=== PATIENT | female | born 1965 | race Caucasian/White ===

== ENCOUNTER → 2016-10-22 | Outpatient (CLI) | payer MEDICAID | LOC: RAD 15:25 | PROVIDERS: ATTEND Urology | DX: N13.30 Unspecified hydronephrosis (principal) | CPT/HCPCS: 76770 ==

== ENCOUNTER → 2017-02-12 | Outpatient (CLI) | payer MEDICAID | LOC: RAD 15:44 | PROVIDERS: ATTEND Internal Medicine | DX: Q07.00 Arnold-Chiari syndrome without spina bifida or hydrocephalus (principal) | CPT/HCPCS: 72141 ==

== ENCOUNTER → 2017-05-29 | Outpatient (CLI) | payer MEDICAID ==
--- NOTE | 2017-05-31 02:11 | RADIOLOGY REPORT (SQ) ---
EXAM DESCRIPTION: CT ABD/PELVIS NO ORAL OR IV COMPLETED DATE/TIME: 05/29/2017 12:19 pm REASON FOR STUDY: STONES (N20.0) N20.0 CALCULUS OF KIDNEY COMPARISON: Bilateral renal ultrasound 10/22/2016 CT abdomen pelvis 08/27/2016 TECHNIQUE: CT scan of the abdomen and pelvis performed without intravenous or oral contrast. Images reviewed with lung, soft tissue, and bone windows. Reconstructed coronal and sagittal MPR images revi ewed. All images stored on PACS. All CT scanners at this facility use dose modulation, iterative reconstruction, and/or weight based d osing when appropriate to reduce radiation dose to as low as reasonably achievable (ALARA). [facility]: Dose Right [facility]: CareDose [facility]: Dose Right [facility]: Teradose 4D [facility]: Right On Interactive RADIATION DOSE: Up-to-date CT equipment and radiation dose reduction techniques were employed. CTDIv ol: 9.2 mGy. DLP: 439 mGy-cm.mGy. LIMITATIONS: Streak artifact through the pelvis from bilateral hip hardware FINDINGS: LOWER CHEST: Small hiatal hernia. Lung bases are clear. NON-CONTRASTED LIVER, SPLEEN, ADRENALS: Evaluation limited by lack of IV contrast. No identified sign ificant masses. PANCREAS: No masses. No peripancreatic inflammatory changes. GALLBLADDER: Multiple calcified stones. No pericholecystic fluid. RIGHT KIDNEY AND URETER: No suspicious masses. Assessment limited by lack of IV contrast. There are multiple right-sided intrarenal nonobstructive stones less than a cm in size, the largest is in the upper pole kidney about 9 mm in diameter, 1,000 Hounsfield units in density. No hydronephrosis or h ydroureter. No right ureteral stones. LEFT KIDNEY AND URETER: No suspicious masses. Assessment limited by lack of IV contrast. There are multiple left-sided intrarenal nonobstructive stones, the largest is 1.3 cm in size in the left upper pole infundibulum, 1,300 Hounsfield units. This is best shown on coronal reconstruction image 57. No hydronephrosis or hydroureter. No left ureteral stones. AORTA AND RETROPERITONEUM: No aneurysm. No retroperitoneal masses or adenopathy. BOWEL AND PERITONEAL CAVITY: No obvious masses or inflammatory changes. No free fluid. APPENDIX: No inflammation. 3 to 4 mm radiodensity likely a small appendicolith present. PELVIS, BLADDER, AND ABDOMINAL WALL:Streak artifact from bilateral hip replacements. Pelvic organs n ot well seen. BONES: Bilateral hip replacements. OTHER: No other significant finding. IMPRESSION: Bilateral intrarenal nonobstructive calculi TECHNICAL DOCUMENTATION: JOB ID: [id number] Quality ID # [id number]: Final reports with documentation of one or more dose reduction techniques (e.g., Au tomated exposure control, adjustment of the mA and/or kV according to patient size, use of iterative reconstruction technique) 2010 [employer]- All Rights Reserved
== END ==
LOC: RAD 12:07
PROVIDERS: ATTEND Urology
DX: N20.0 Calculus of kidney (principal)
CPT/HCPCS: 74176

== ENCOUNTER 2017-07-17 15:49 | Emergency (ER) | payer MEDICAID ==
[2017-07-17 15:58] VITALS: BP 131/72
--- NOTE | 2017-07-17 16:03 | ER Document Report ---
ED Head/Face/Scalp Injury - General Chief Complaint: Head Injury Stated Complaint: HEAD INJURY Time Seen by Provider: 07/17/17 15:56 Mode of Arrival: Ambulatory Information source: Patient TRAVEL OUTSIDE OF THE [place] IN LAST 30 DAYS: No - HPI Patient complains to provider of: Injury, Pain, Swelling Injury to: Head Location of problem: Head Occurred: Just prior to arrival Where: Home Timing: Still present Context: Fell Loss consciousness: No loss of consciousness Remembers: Injury, Coming to hospital Notes: Patient is a 52-year-old female presenting to the emergency room today after trip and fall causing head injury,, she hit the right posterior scalp on the floor and has a large hematoma there, she denies any nausea or vomiting, no loss of consciousness, no dizziness, no vision changes, no worsening headache, in fact she has been holding an ice pack over the hematoma and reports it is feeling much better, she does not take blood thinners - Related Data Allergies/Adverse Reactions: acetaminophen [From Percocet] Allergy (Verified 07/17/17 15:55) ciprofloxacin [From Cipro] Allergy (Verified 07/17/17 15:55) codeine Allergy (Verified 07/17/17 15:55) ketorolac [From Toradol] Allergy (Verified 07/17/17 15:55) morphine Allergy (Verified 07/17/17 15:55) nitrofurantoin [From Macrobid] Allergy (Verified 07/17/17 15:55) oxycodone [From Percocet] Allergy (Verified 07/17/17 15:55) Penicillins Allergy (Verified 07/17/17 15:55) sulfamethoxazole [From Bactrim] Allergy (Verified 07/17/17 15:55) trimethoprim [From Bactrim] Allergy (Verified 07/17/17 15:55) imepenum Allergy (Uncoded 07/17/17 15:55) Past Medical History - General Information source: Patient - Social History Smoking Status: Never Smoker Family History: Reviewed & Not Pertinent Renal/ Medical History: Denies: Hx Peritoneal Dialysis Review of Systems - Review of Systems Constitutional: No symptoms reported EENT: No symptoms reported Cardiovascular: No symptoms reported Respiratory: No symptoms reported Gastrointestinal: No symptoms reported Genitourinary: No symptoms reported Female Genitourinary: No symptoms reported Musculoskeletal: See HPI Skin: No symptoms reported Hematologic/Lymphatic: No symptoms reported Neurological/Psychological: No symptoms reported -: Yes All other systems reviewed and negative Physical Exam - Vital signs Vitals: Temp Pulse Resp BP Pulse Ox 97.9 F 87 18 131/72 H 96 07/17/17 15:57 07/17/17 15:57 07/17/17 15:57 07/17/17 15:57 07/17/17 15:57 - Notes Notes: - General General appearance: Appears well, Alert In distress: None - HEENT Head: Normocephalic, large hematoma to right posterior parietal scalp Eyes: Normal Conjunctiva: Normal Extraocular movements intact: Yes Eyelashes: Normal Pupils: PERRL - Respiratory Respiratory status: No respiratory distress - Cardiovascular Rhythm: Regular - Abdominal Inspection: Normal - Back Back: Normal - Extremities General upper extremity: Normal inspection General lower extremity: Normal inspection - Neurological Neuro grossly intact: Yes Orientation: AAOx4 [place] Coma Scale Eye Opening: Spontaneous Zac Coma Scale Verbal: Oriented [place] Coma Scale Motor: Obeys Commands Surrency Coma Scale Total: 15 - Psychological Associated symptoms: Normal affect, Normal mood - Skin Skin Temperature: Warm Skin Moisture: Dry Skin Color: Normal - General General appearance: Appears well In distress: None - HEENT Eyes: Normal Conjunctiva: Normal Extraocular movements intact: Yes Eyelashes: Normal Pupils: PERRL Ears: Normal External canal: Normal Tympanic membrane: Normal Neck: Normal Course - Vital Signs Vital signs: Temp Pulse Resp BP Pulse Ox 97.9 F 87 18 131/72 H 96 07/17/17 15:57 07/17/17 15:57 07/17/17 15:57 07/17/17 15:57 07/17/17 15:57 Discharge - Discharge Clinical Impression: Head injury Qualifiers: Encounter type: initial encounter Qualified Code(s): S09.90XA - Unspecified injury of head, initial encounter Condition: Stable Disposition: HOME, SELF-CARE Instructions: Head Injury Precautions ([facility]), Ice Packs ([facility]), Scalp Hematoma ( [facility]) Additional Instructions: Follow up with your primary care provider in one to 2 days. Return to the emergency room immediately if symptoms worsen or any additional concerns. Forms: Return to School
== END 2017-07-17 16:10 | disposition home or self-care (01) ==
LOC: ER 15:49
DX: S00.03XA Contusion of scalp, initial encounter (principal); W01.0XXA Fall on same level from slipping, tripping and stumbling without subsequent striking against object, initial encounter; Y92.009 Unspecified place in unspecified non-institutional (private) residence as the place of occurrence of the external cause; Z88.5 Allergy status to narcotic agent; Z88.1 Allergy status to other antibiotic agents; Z88.0 Allergy status to penicillin
CPT/HCPCS: 99283

== ENCOUNTER → 2017-09-13 | Outpatient (CLI) | payer MEDICAID | LOC: WI 13:19 | PROVIDERS: ATTEND Internal Medicine | DX: Z12.31 Encounter for screening mammogram for malignant neoplasm of breast (principal) | CPT/HCPCS: 77063; G0202; 77067 ==

== ENCOUNTER → 2017-12-05 | Outpatient (CLI) | payer MEDICAID ==
--- NOTE | 2017-12-05 13:26 | RADIOLOGY REPORT (SQ) ---
EXAM DESCRIPTION: CT ABD/PELVIS NO ORAL OR IV COMPLETED DATE/TIME: 12/05/2017 9:42 am REASON FOR STUDY: CALCULUS OF KIDNEY N20.0 CALCULUS OF KIDNEY COMPARISON: 05/29/2017. TECHNIQUE: CT scan of the abdomen and pelvis performed without intravenous or oral contrast. Images reviewed with lung, soft tissue, and bone windows. Reconstructed coronal and sagittal MPR images revi ewed. All images stored on PACS. All CT scanners at this facility use dose modulation, iterative reconstruction, and/or weight based d osing when appropriate to reduce radiation dose to as low as reasonably achievable (ALARA). [facility]: Dose Right [facility]: CareDose [facility]: Dose Right [facility]: Teradose 4D [facility]: [employer] RADIATION DOSE: CT Rad equipment meets quality standard of care and radiation dose reduction techniq ues were employed. CTDIvol: 10.6 mGy. DLP: 536 mGy-cm.mGy. LIMITATIONS: Metallic artifact from bilateral hip prostheses limits visualization of the pelvic stru ctures. FINDINGS: LOWER CHEST: No significant findings. No nodules or infiltrates. NON-CONTRASTED LIVER, SPLEEN, ADRENALS: Evaluation limited by lack of IV contrast. No identified sign ificant masses. PANCREAS: No masses. No peripancreatic inflammatory changes. GALLBLADDER: Gallstones. No inflammatory changes to suggest cholecystitis. RIGHT KIDNEY AND URETER: No suspicious masses. Assessment limited by lack of IV contrast. Multiple calyceal calculi. No hydronephrosis or hydroureter. Unable to visualize the distal ureter due to m etallic artifact from hip prostheses. LEFT KIDNEY AND URETER: No suspicious masses. Assessment limited by lack of IV contrast. Multiple c alyceal calculi. Percutaneous nephrostomy tube extending to the renal pelvis. Ureteral catheter ex tends distally to the level of L4-L5. No hydronephrosis or hydroureter. No abnormal fluid collectio n in the perinephric soft tissues. Unable to visualize the distal ureter due to metallic artifact fr om hip prostheses. AORTA AND RETROPERITONEUM: No aneurysm. No retroperitoneal masses or adenopathy. BOWEL AND PERITONEAL CAVITY: No obvious masses or inflammatory changes. No free fluid. APPENDIX: Not visualized. PELVIS, BLADDER, AND ABDOMINAL WALL:No abnormal masses. No free fluid. Bladder normal. BONES: No significant findings. Bilateral hip prostheses. OTHER: No other significant finding. IMPRESSION: 1. LEFT-SIDED PERCUTANEOUS NEPHROSTOMY TUBE DESCRIBED. 2. MULTIPLE CALYCEAL CALCULI IN BOTH KIDNEYS. NO URETERAL CALCULI, HYDRONEPHROSIS, OR HYDROURETER. UNABLE TO VISUALIZE THE DISTAL URETERS DUE TO METALLIC ARTIFACT FROM HIP PROSTHESES. 3. GALLSTONES. 4. NO OTHER SIGNIFICANT OR ACUTE PROCESS IN THE ABDOMEN OR PELVIS. COMMENT: Quality ID # 436: Final reports with documentation of one or more dose reduction techniques (e.g., Automated exposure control, adjustment of the mA and/or kV according to patient size, use of iterative reconstruction technique) TECHNICAL DOCUMENTATION: JOB ID: [id number] [employer]- All Rights Reserved
== END ==
LOC: RAD 09:30
PROVIDERS: ATTEND Urology
DX: N20.0 Calculus of kidney (principal)
CPT/HCPCS: 74176

== ENCOUNTER → 2018-02-04 | Outpatient (CLI) | payer MEDICAID ==
--- NOTE | 2018-02-04 13:27 | RADIOLOGY REPORT (SQ) ---
EXAM DESCRIPTION: U/S ABDOMEN COMPLETE W/O DOP COMPLETED DATE/TIME: 02/04/2018 9:43 am REASON FOR STUDY: R74.8 ABNORMAL LEVELS OF OTHER SERUM ENZYMES R74.8 ABNORMAL LEVELS OF OTHER SERUM ENZYMES COMPARISON: CT dated 12/11/2017. TECHNIQUE: Dynamic and static grayscale images acquired of the abdomen and recorded on PACS. Additio nal selected color Doppler and spectral images recorded. LIMITATIONS: None. FINDINGS: PANCREAS: No masses. Visualized pancreatic duct normal caliber. LIVER: No masses. Echotexture normal. LIVER VASCULATURE: Normal directional flow of the main portal vein and hepatic veins. GALLBLADDER: Gallstone(s). No pericholecystic fluid. No wall thickening. ULTRASOUND-DETECTED APPLE'S SIGN: Negative. INTRAHEPATIC DUCTS AND COMMON DUCT: CBD and intrahepatic ducts normal caliber. No filling defects. INFERIOR VENA CAVA: Normal flow. AORTA: No aneurysm. RIGHT KIDNEY: Normal size. Normal echogenicity. No solid or suspicious masses. No hydronephros is. Multiple small calculi. LEFT KIDNEY: Normal size. Normal echogenicity. No solid or suspicious masses. No hydronephrosi s. No calcifications. SPLEEN: Normal size. No solid masses. PERITONEAL AND PLEURAL SPACES: No ascites or effusions. OTHER: No other significant finding. IMPRESSION: 1. GALLSTONES. 2. MULTIPLE SMALL NONOBSTRUCTING CALYCEAL CALCULI IN THE RIGHT KIDNEY. LEFT RENAL CALCULI SEEN ON RE CENT CT NOT CLEARLY DEMONSTRATED ON ULTRASOUND. TECHNICAL DOCUMENTATION: JOB ID: [id number] [employer]- All Rights Reserved Reading location - IP/workstation name: [email or web address]
== END ==
LOC: RAD 08:38
PROVIDERS: ATTEND Internal Medicine
DX: R74.8 Abnormal levels of other serum enzymes (principal); K80.80 Other cholelithiasis without obstruction; N20.0 Calculus of kidney
CPT/HCPCS: 76700

== ENCOUNTER → 2018-09-15 | Outpatient (CLI) | payer MEDICARE, MEDICAID ==
--- NOTE | 2018-09-15 16:41 | WOMENS IMAGING REPORT ---
EXAM DESCRIPTION: 3D SCREENING MAMMO BILAT COMPLETED DATE/TIME: 09/15/2018 2:07 pm REASON FOR STUDY: SCREENING MAMMO Z12.31 ENCNTR SCREEN MAMMOGRAM FOR MALIGNANT NEOPLASM OF GLORIA COMPARISON: 2017 TECHNIQUE: Standard craniocaudal and mediolateral oblique views of each breast recorded using digita l acquisition and breast tomosynthesis. LIMITATIONS: None. FINDINGS: No masses, calcifications or architectural distortion. No areas of suspicion. Read with the assistance of CAD. .[facility] - R2 [employer] Version 1.3 .[facility] Imaging - R2 Cen[employer] Version 1.[address] .[facility] - R2 C[employer] Version 2.4 .[facility] - R2 Cenova Version 2.4 .[facility] - R2 [employer] Architect Version 9.2 IMPRESSION: NORMAL MAMMOGRAM. BIRADS 1. BREAST DENSITY: b. There are scattered areas of fibroglandular density. BIRAD: 1 NEGATIVE RECOMMENDATION: ROUTINE SCREENING COMMENT: The patient has been notified of the results by letter per SA requirements. Additional no tification policies are in place for contacting patient with suspicious or incomplete findings. Quality ID #225: The [employer] recommends an annual screening mammogram for women aged 40 years or over. This facility utilizes a reminder system to ensure that all patients receive reminder letters, and/or direct phone calls for appointments. This includes reminders for routine scr eening mammograms, diagnostic mammograms, or other Breast Imaging Interventions when appropriate. Th is patient will be placed in the appropriate reminder system. The [employer] (ACR) has developed recommendations for screening MRI of the breast s in certain patient populations, to be used in conjunction with mammography. Breast MRI surveillanc e may be appropriate for women with more than 20% lifetime risk of developing breast cancer as deter mined by genetic testing, significant family history of the disease, or history of mantle radiation f or Hodgkins Disease. ACR Practice Guidelines 2008. DBT Technology DBT is a type of tomographic mammography. With conventional mammography, overlapping breast tissue ma y make lesions difficult to detect, even with good compression. DBT uses an x-ray tube that rotates a round the breast, taking images at different angles. These images are then combined to create thin sl ices of the breast that the radiologist can view as a 3D reconstruction. The Fritter unit can perform full-field digital mammograms (2D imaging); or DBT (3D imaging); or both, in a combination mode that quickly performs both the mammogram and the tomosynthesis scan while the breast is still compressed. PQRS 6045F: Fluoroscopic imaging is not utilized for breast tomosynthesis. TECHNICAL DOCUMENTATION: FINDING NUMBER: (1) ASSESSMENT: (1) JOB ID: [id number] [employer]- All Rights Reserved Reading location - IP/workstation name: [email or web address]
== END ==
LOC: WI 13:32
PROVIDERS: ATTEND Internal Medicine
DX: Z12.31 Encounter for screening mammogram for malignant neoplasm of breast (principal)
CPT/HCPCS: 77063; 77067

== ENCOUNTER → 2018-12-01 | Outpatient (CLI) | payer MEDICARE, MEDICAID ==
--- NOTE | 2018-12-01 16:03 | RADIOLOGY REPORT (SQ) ---
EXAM DESCRIPTION: RIBS LEFT W/PA CHEST COMPLETED DATE/TIME: 12/01/2018 3:10 pm REASON FOR STUDY: RIB PAIN ON LEFT SIDE R07.81 PLEURODYNIA COMPARISON: None. TECHNIQUE: Frontal view of the chest and additional views of the left ribs acquired. NUMBER OF VIEWS: PA chest, left ribs four views LIMITATIONS: None. FINDINGS: FRONTAL CXR: No pneumothorax. No pleural effusion. No atelectasis or infiltrates. Cardi ac silhouette size, larry unremarkable. RIBS: No displaced rib fractures. No lytic or blastic bony lesions. OTHER: Advanced arthritis both shoulders. IMPRESSION: NO PNEUMOTHORAX. NO DISPLACED RIB FRACTURES. COMMENT: SITE OF TRAUMA/COMPLAINT MARKED/STAMP COMPLETED: Yes TECHNICAL DOCUMENTATION: JOB ID: [id number] [employer]- All Rights Reserved Reading location - IP/workstation name: [email or web address]
== END ==
LOC: OD 14:38
PROVIDERS: ATTEND Nurse Practitioner Acute Care
DX: R07.81 Pleurodynia (principal)

== ENCOUNTER 2019-01-19 10:16 | Inpatient (IN) | payer MEDICARE, MEDICAID ==
[2019-01-19] MEDS ORDERED: METOCLOPRAMIDE HCL INJ/PF 10 MG/2 ML SDV IV ONE (10:31)
[2019-01-19] MEDS ORDERED: NORMAL SALINE 1000 ML 1,000 ML IV ONE ×2 (10:32→17:02)
--- NOTE | 2019-01-19 10:33 | ER Document Report ---
ED Medical Screen (RME) - General Chief Complaint: Abdominal Pain Stated Complaint: ABDOMINAL PAIN Time Seen by Provider: 01/19/19 10:28 Primary Care Provider: MT GERARDO NP [Primary Care Provider] - Follow up as needed Mode of Arrival: Medic Information source: Patient Notes: Patient is a 53-year-old female who presents to the emergency department complaining of mid abdominal pain with nausea and vomiting. Patient reports pain started last night around 10 PM. States that the nausea and vomiting started a few hours after that. Patient reports she has had at least 20 episodes of vomiting and diarrhea. Patient denies any fevers. Exam: Abdomen is soft, mild tenderness over the epigastric area, no guarding and no rebound tenderness. I have greeted and performed a rapid initial assessment of this patient. A comprehensive ED assessment and evaluation of the patient, analysis of test results and completion of the medical decision making process will be conducted by additional ED providers. Dictation of this chart was performed using voice recognition software; therefore, there may be some unintended grammatical errors. TRAVEL OUTSIDE OF THE [place] IN LAST 30 DAYS: No - Related Data Allergies/Adverse Reactions: ciprofloxacin [From Cipro] Allergy (Verified 01/19/19 10:20) codeine Allergy (Verified 01/19/19 10:20) ketorolac [From Toradol] Allergy (Verified 01/19/19 10:20) morphine Allergy (Verified 01/19/19 10:20) nitrofurantoin [From Macrobid] Allergy (Verified 01/19/19 10:20) oxycodone [From Percocet] Allergy (Verified 01/19/19 10:20) Penicillins Allergy (Verified 01/19/19 10:20) sulfamethoxazole [From Bactrim] Allergy (Verified 01/19/19 10:20) trimethoprim [From Bactrim] Allergy (Verified 01/19/19 10:20) imepenum Allergy (Uncoded 01/19/19 10:20) Past Medical History Renal/ Medical History: Denies: Hx Peritoneal Dialysis - Immunizations Hx Diphtheria, Pertussis, Tetanus Vaccination: No - pt denied wanting the vaccine Doctor's Discharge - Discharge Referrals: MT GERARDO NP [Primary Care Provider] - Follow up as needed
--- NOTE | 2019-01-19 11:02 | ER Document Report ---
ED General - General Chief Complaint: Abdominal Pain Stated Complaint: ABDOMINAL PAIN Time Seen by Provider: 01/19/19 10:28 Primary Care Provider: MT GERARDO, CANE FEEDER [NURSE PRACTITIONER] - Follow up as needed Mode of Arrival: Medic Notes: 53-year-old female with a history of gallstones although says she has never had symptoms from them, as well as kidney stones presents with epigastric pain, sharp and burning intermittent with vomiting and diarrhea starting last night. Pain does not migrate is not about the back or flanks. She has no urination. No fever. TRAVEL OUTSIDE OF THE [place] IN LAST 30 DAYS: No - Related Data Allergies/Adverse Reactions: ciprofloxacin [From Cipro] Allergy (Verified 01/19/19 10:20) codeine Allergy (Verified 01/19/19 10:20) ketorolac [From Toradol] Allergy (Verified 01/19/19 10:20) morphine Allergy (Verified 01/19/19 10:20) nitrofurantoin [From Macrobid] Allergy (Verified 01/19/19 10:20) oxycodone [From Percocet] Allergy (Verified 01/19/19 10:20) Penicillins Allergy (Verified 01/19/19 10:20) sulfamethoxazole [From Bactrim] Allergy (Verified 01/19/19 10:20) trimethoprim [From Bactrim] Allergy (Verified 01/19/19 10:20) imepenum Allergy (Uncoded 01/19/19 10:20) Past Medical History - General Information source: Patient - Social History Smoking Status: Never Smoker Chew tobacco use (# tins/day): No Frequency of alcohol use: None Drug Abuse: None Family History: Reviewed & Not Pertinent Patient has suicidal ideation: No Patient has homicidal ideation: No Renal/ Medical History: Denies: Hx Peritoneal Dialysis - Immunizations Hx Diphtheria, Pertussis, Tetanus Vaccination: No - pt denied wanting the vaccine Review of Systems - Review of Systems Notes: REVIEW OF SYSTEMS GEN: Denies fever, chills, weight loss ENT: Denies sore throat, nasal discharge, ear pain EYES: Denies blurry vision, eye pain, discharge CV: Denies chest pain, palpitations, edema RESP: Denies cough, shortness of breath, wheezing GI: Normal pain diarrhea MSK: Denies joint pain/swelling, edema, SKIN: Denies rash, skin lesions LYMPH: Denies swollen glands/lymph nodes NEURO: Denies headache, focal weakness or numbness, dizziness PSYCH: Denies depression, suicidal or homicidal ideation PHYSICAL EXAMINATION General: No acute distress, well-nourished Head: Atraumatic, normocephalic ENT: Mouth normal, oropharynx moist, no exudates or tonsillar enlargement Eyes: Conjunctiva normal, pupils equal, lids normal Neck: No JVD, supple, no guarding CVS: Normal rate, regular rhythm, no murmurs Resp: No resp distress, equal and normal breath sounds bilaterally GI: Nondistended, soft, mild epigastric tenderness to palpation, no rebound or guarding Ext: No deformities, no edema, normal range of motion in upper and lower ext Back: No CVA or midline TTP Skin: No rash, warm Lymphatic: No lymphadeopathy noted Neuro: Awake, alert. Face symmetric. GCS 15. Physical Exam - Vital signs Vitals: Temp Pulse Resp BP Pulse Ox 98.8 F 100 16 160/108 H 96 01/19/19 10:35 01/19/19 10:35 01/19/19 10:35 01/19/19 10:35 01/19/19 10:35 Course - Re-evaluation Re-evalutation: 01/19/19 11:02 53-year-old lady with epigastric pain vomiting diarrhea. She has mild tenderness around the epigastric area, however I do not think this reflect a perforation. Differential includes gastritis pancreatitis hepatitis ulcer disease. She takes an immune modulator for arthritis as well as steroids and NSAIDs. We will treat with meds ordered by triage provider workup as workup ordered by triage provider. I will do a bedside ultrasound to check her gallbladder. 01/19/19 14:58 Patient still retching and requiring multiple doses of antiemetics. Tender. Her noncontrast CT is showing a small bowel obstruction. I discussed this with surgical is Dr. Manley who will see the patient but requested that I order a CT with oral contrast. The patient can keep it down we will do that. - Vital Signs Vital signs: Temp Pulse Resp BP Pulse Ox 98.8 F 100 16 172/94 H 96 01/19/19 10:35 01/19/19 10:35 01/19/19 10:35 01/19/19 13:00 01/19/19 13:01 - Laboratory Result Diagrams: 01/19/19 12:48 01/19/19 11:48 Laboratory results interpreted by me: 01/19/19 01/19/19 01/19/19 11:48 12:32 12:48 RDW 15.6 H Seg Neuts % (Manual) 92 H Lymphocytes % (Manual) 5 L Abs Neuts (Manual) 9.3 H Glucose 115 H Calcium 10.6 H AST 37 H Alkaline Phosphatase 156 H Urine Ketones TRACE H Urine Urobilinogen 2.0 H - Diagnostic Test Radiology reviewed: Image reviewed, Reports reviewed Procedures - Ultrasound/Bedside Ultrasound/Bedside Time completed: 12:50 - Additional Procedures IV insertion Time performed: 12:55 Additional Procedures: IV insertion - Indication: Nursing unable to obtain IV access. Ultrasound used. Sterile technique followed. Left 20-gauge IV placed in the deep brachial vein successfully. One attempt. Dressed in the appropriate manner. Patient tolerated well. Discharge - Discharge Clinical Impression: Small bowel obstruction Condition: Good Disposition: ADMITTED INPATIENT Admitting Provider: Surgicalist Unit Admitted: Surgical Floor Referrals: MT GERARDO NP [NURSE PRACTITIONER] - Follow up as needed
[2019-01-19 12:32] LABS: ALANINE AMINOTRANSFERASE 30 U/L (9-52); ALBUMIN 4.6 g/dL (3.5-5.0); ALKALINE PHOSPHATASE 156 U/L (38-126); ANION GAP 11 (5-19); ASPARTATE AMINO TRANSFERASE 37 U/L (14-36); BILIRUBIN,DIRECT 0.4 mg/dL (0.0-0.4); BLOOD UREA NITROGEN 17 mg/dL (7-20); CALCIUM 10.6 mg/dL (8.4-10.2); CARBON DIOXIDE 26 mmol/L (22-30); CHLORIDE 105 mmol/L (98-107); GLUCOSE 115 mg/dL (75-110); LIPASE 115.4 U/L (23-300); POTASSIUM 3.8 mmol/L (3.6-5.0); SODIUM 141.6 mmol/L (137-145); TOTAL PROTEIN 7.9 g/dL (6.3-8.2)
[2019-01-19] MEDS ORDERED: ONDANSETRON HCL INJ/PF 4 MG/2 ML SDV ONE (12:52)
[2019-01-19] MEDS ORDERED: ONDANSETRON HCL INJ/PF 4 MG/2 ML SDV IV ONE ×2 (12:56→14:52)
[2019-01-19 13:08] LABS: HEMATOCRIT 44.5 % (36.0-47.0); HEMOGLOBIN 15.5 g/dL (12.0-15.5); MEAN CORPUSCULAR HEMOGLOBIN 33.2 pg (27.0-33.4); MEAN CORPUSCULAR HGB CONC 34.9 g/dL (32.0-36.0); MEAN CORPUSCULAR VOLUME 95 fl (80-97); PLATELET COUNT 259 10^3/uL (150-450); RED BLOOD COUNT 4.66 10^6/uL (3.72-5.28); RED CELL DISTRIBUTION WIDTH 15.6 % (11.5-14.0); WHITE BLOOD COUNT 10.1 10^3/uL (4.0-10.5)
[2019-01-19 13:28] LABS: ABSOLUTE LYMPHOCYTES# (MANUAL) 0.5 10^3/uL (0.5-4.7); ABSOLUTE MONOCYTES # (MANUAL) 0.3 10^3/uL (0.1-1.4); ABSOLUTE NEUTROPHILS# (MANUAL) 9.3 10^3/uL (1.7-8.2); BASOPHILS % (MANUAL) 0 % (0-2); EOSINOPHILS % (MANUAL) 0 % (0-6); LYMPHOCYTES % (MANUAL) 5 % (13-45); MONOCYTES % (MANUAL) 3 % (3-13); SEGMENTED NEUTROPHILS % (MAN) 92 % (42-78); TOTAL CELLS COUNTED 100
[2019-01-19 13:29] LABS: ANISOCYTOSIS SLIGHT; OVALOCYTES SLIGHT; PLATELET COMMENT ADEQUATE; POIKILOCYTOSIS SLIGHT; TEAR DROP CELLS SLIGHT
[2019-01-19 13:30] LABS: AMORPHOUS SEDIMENT,URINE TRACE /HPF; APPEARANCE,URINE CLOUDY; BILIRUBIN,URINE NEGATIVE (NEGATIVE); COLOR,URINE YELLOW; GLUCOSE, URINE NEGATIVE (NEGATIVE); KETONES,URINE TRACE mg/dL (NEGATIVE); LEUKOCYTE ESTERASE,URINE NEGATIVE (NEGATIVE); NITRITE,URINE NEGATIVE (NEGATIVE); PROTEIN,URINE NEGATIVE (NEGATIVE); URINE SPECIFIC GRAVITY 1.013
--- NOTE | 2019-01-19 14:04 | RADIOLOGY REPORT (SQ) ---
EXAM DESCRIPTION: CT ABD/PELVIS NO ORAL OR IV COMPLETED DATE/TIME: 01/19/2019 1:41 pm REASON FOR STUDY: Bilateral lower quadrant pain, contrast allergy COMPARISON: 12/05/2017 TECHNIQUE: CT scan of the abdomen and pelvis performed without intravenous or oral contrast. Images reviewed with lung, soft tissue, and bone windows. Reconstructed coronal and sagittal MPR images revi ewed. All images stored on PACS. All CT scanners at this facility use dose modulation, iterative reconstruction, and/or weight based d osing when appropriate to reduce radiation dose to as low as reasonably achievable (ALARA). [facility]: Dose Right [facility]: CareDose [facility]: Dose Right [facility]: Teradose 4D [facility]: [employer] RADIATION DOSE: CT Rad equipment meets quality standard of care and radiation dose reduction techniq ues were employed. CTDIvol: 11.5 mGy. DLP: 597 mGy-cm.mGy. LIMITATIONS: None. FINDINGS: LOWER CHEST: No significant findings. No nodules or infiltrates. NON-CONTRASTED LIVER, SPLEEN, ADRENALS: Evaluation limited by lack of IV contrast. No identified sign ificant masses. PANCREAS: No masses. No peripancreatic inflammatory changes. GALLBLADDER: Gallstones. No inflammatory changes to suggest cholecystitis. RIGHT KIDNEY AND URETER: No suspicious masses. Assessment limited by lack of IV contrast. Multiple nonobstructive calculi. No hydronephrosis or hydroureter. LEFT KIDNEY AND URETER: No suspicious masses. Assessment limited by lack of IV contrast. Multiple n onobstructive calculi. No hydronephrosis or hydroureter. AORTA AND RETROPERITONEUM: No aneurysm. No retroperitoneal masses or adenopathy. BOWEL AND PERITONEAL CAVITY: There are multiple loops of fluid-filled and fecalized proximal small walter wel in the mid abdomen and left upper quadrant. There is a tightly knuckled transition point in the anterior central abdomen (series 3, image 55, series 601, image 19). APPENDIX: Not clearly visualized. PELVIS, BLADDER, AND ABDOMINAL WALL:No abnormal masses. No free fluid. Status posthysterectomy. Carlton dder normal. BONES: Status post bilateral hip total arthroplasty. OTHER: No other significant finding. IMPRESSION: 1. There are multiple loops of fluid-filled and fecalized proximal small bowel in the mi d abdomen and left upper quadrant. There is a tightly knuckled transition point in the anterior cent ral abdomen (series 3, image 55, series 601, image 19). Findings are consistent with small bowel obs truction. 2. Cholelithiasis. 3. Nonobstructive nephrolithiasis. COMMENT: Quality ID # 436: Final reports with documentation of one or more dose reduction techniques (e.g., Automated exposure control, adjustment of the mA and/or kV according to patient size, use of iterative reconstruction technique) TECHNICAL DOCUMENTATION: JOB ID: [id number] [employer]- All Rights Reserved Reading location - IP/workstation name: [email or web address]
[2019-01-19] MEDS ORDERED: FAMOTIDINE 20 MG TABLET PO ONE (14:18)
[2019-01-19] MEDS ORDERED: FENTANYL CITRATE INJ/PF 100 MCG/2 ML AMPUL IV ONE (14:18)
[2019-01-19] MEDS ORDERED: LIDOCAINE 2% JELLY 30 ML TUBE TOP ONE (16:34)
[2019-01-19] MEDS ORDERED: LIDOCAINE 2% URO-JET 5 ML KIT MM ONE (16:39)
[2019-01-19] MEDS ORDERED: NORMAL SALINE 1000 ML 1,000 ML IV PRN (17:19)
--- NOTE | 2019-01-19 17:19 | PDOC CONSULTATION ---
Consultation Consult Date: 01/19/19 Consult reason:: Abdominal pain and diarrhea History of Present Illness Admission Date/PCP: 01/19/19 15:15 SHANI HALL MD History of Present Illness: TRISTA NICOLE is a 53 year old female, obese, with JRA since age 5, on chronic oral steroids, who reports the sudden onset of abdominal pain last night at 10 PM followed by two bouts of diarrhea, no blood and severe nausea and vomiting with undigested food first, later bilious. Currently she is still vomiting and retching. A CT scan A/P has been done and it reveals dilated small bowel loops with transition point as per possible SBO. Also, she is s/p multiple arthroplasties. Social History Smoking Status: Never Smoker Family History Family History: Reviewed & Not Pertinent Parental Family History Reviewed: No Children Family History Reviewed: No Sibling(s) Family History Reviewed.: No Medication/Allergy Home Medications: Methotrexate Sodium [Rheumatrex 2.5 mg Tablet] 2.5 mg PO 01/19/19 Prednisone [Deltasone 1 mg Tablet] 1 mg PO DAILY 01/19/19 Sulindac 150 mg PO Q12HP PRN 01/19/19 Tofacitinib Citrate [Xeljanz Xr] 11 mg PO DAILY 01/19/19 Tramadol HCl [Ultram 50 mg Tablet] 50 mg PO Q12HP PRN 01/19/19 Allergies/Adverse Reactions: ciprofloxacin [From Cipro] Allergy (Verified 01/19/19 10:20) codeine Allergy (Verified 01/19/19 10:20) ketorolac [From Toradol] Allergy (Verified 01/19/19 10:20) morphine Allergy (Verified 01/19/19 10:20) nitrofurantoin [From Macrobid] Allergy (Verified 01/19/19 10:20) oxycodone [From Percocet] Allergy (Verified 01/19/19 10:20) Penicillins Allergy (Verified 01/19/19 10:20) sulfamethoxazole [From Bactrim] Allergy (Verified 01/19/19 10:20) trimethoprim [From Bactrim] Allergy (Verified 01/19/19 10:20) imepenum Allergy (Uncoded 01/19/19 10:20) Physical Exam Vital Signs: Temp Pulse Resp BP Pulse Ox 98.8 F 100 16 172/94 H 96 04/08/19 10:35 01/19/19 10:35 01/19/19 10:35 01/19/19 13:00 01/19/19 13:01 Intake & Output 01/18/19 01/19/19 01/20/19 06:59 06:59 06:59 Intake Total 1000 Balance 1000 Weight 66.8 kg General appearance: PRESENT: mild distress, obese Head exam: PRESENT: atraumatic Eye exam: PRESENT: EOMI Mouth exam: PRESENT: moist, neck supple Neck exam: PRESENT: full ROM Respiratory exam: PRESENT: clear to auscultation donovan Cardiovascular exam: PRESENT: RRR GI/Abdominal exam: PRESENT: distended, hyperactive bowel sounds, soft, other - no tenderness, no peritonela signs, Rectal exam: PRESENT: deferred Extremities exam: PRESENT: full ROM Musculoskeletal exam: PRESENT: full ROM Psychiatric exam: PRESENT: appropriate affect, depressed Skin exam: PRESENT: warm Results Laboratory Results: 01/19/19 12:48 01/19/19 11:48 01/19/19 01/19/19 01/19/19 11:48 11:48 12:32 WBC RBC Hgb Hct MCV MCH MCHC RDW Plt Count Seg Neutrophils % Lymphocytes % Monocytes % Eosinophils % Basophils % Absolute Neutrophils Absolute Lymphocytes Absolute Monocytes Absolute Eosinophils Absolute Basophils Sodium 141.6 Potassium 3.8 Chloride 105 Carbon Dioxide 26 Anion Gap 11 BUN 17 Creatinine 0.66 Est GFR ( Amer) > 60 Est GFR (Non-Af Amer) > 60 Glucose 115 H Calcium 10.6 H Total Bilirubin 1.0 AST 37 H ALT 30 Alkaline Phosphatase 156 H Total Protein 7.9 Albumin 4.6 Lipase 115.4 Serum HCG, Qual NEGATIVE Urine Color YELLOW Urine Appearance CLOUDY Urine pH 9.0 Ur Specific [place] 1.013 Urine Protein NEGATIVE Urine Glucose (UA) NEGATIVE Urine Ketones TRACE H Urine Blood NEGATIVE Urine Nitrite NEGATIVE Ur Leukocyte Esterase NEGATIVE Urine WBC (Auto) 2 Urine RBC (Auto) 5 01/19/19 12:48 WBC 10.1 RBC 4.66 Hgb 15.5 Hct 44.5 MCV 95 MCH 33.2 MCHC 34.9 RDW 15.6 H Plt Count 259 Seg Neutrophils % Not Reportable Lymphocytes % Not Reportable Monocytes % Not Reportable Eosinophils % Not Reportable Basophils % Not Reportable Absolute Neutrophils Not Reportable Absolute Lymphocytes Not Reportable Absolute Monocytes Not Reportable Absolute Eosinophils Not Reportable Absolute Basophils Not Reportable Sodium Potassium Chloride Carbon Dioxide Anion Gap BUN Creatinine Est GFR ( Amer) Est GFR (Non-Af Amer) Glucose Calcium Total Bilirubin AST ALT Alkaline Phosphatase Total Protein Albumin Lipase Serum HCG, Qual Urine Color Urine Appearance Urine pH Ur Specific [place] Urine Protein Urine Glucose (UA) Urine Ketones Urine Blood Urine Nitrite Ur Leukocyte Esterase Urine WBC (Auto) Urine RBC (Auto) Impressions: Abdomen/Pelvis CT 01/19/19 13:28 IMPRESSION: 1. There are multiple loops of fluid-filled and fecalized proximal small bowel in the mid abdomen and left upper quadrant. There is a tightly knuckled transition point in the anterior central abdomen (series 3, image 55, s eries 601, image 19). Findings are consistent with small bowel obstruction. 2. Cholelithiasis. 3. Nonobstructive nephrolithiasis. Assessment & Plan - Diagnosis (2) Nausea & vomiting Qualifiers: Vomiting type: bilious vomiting Qualified Code(s): R11.14 - Bilious vomiting Is this a current diagnosis for this admission?: Yes (3) Diarrhea Is this a current diagnosis for this admission?: Yes - Plan Summary Plan Summary: A/ 53 y/o F with sudden onset abdominal pain, uncontrollable vomiting and diarrhea patient denies common causes of vomiting diarrhea such as contact with elderly, cattle, eating raw meat and chicken No previous hx of abdominal surgery Physical Exam is overall unremarkable, soft, not tender Blood work in unremarkable CT scan A/p without either IV or oral contrast is significant for dilated loops of small bowel, questionable transition point P/ NPO NGT IVF 125 mL/hr repeat abdominal acute obstructive series in AM
[2019-01-19] MEDS ORDERED: GLUCAGON,HUMAN RECOMB 1 MG INJ SUBCUT PRN (17:20)
[2019-01-19] MEDS ORDERED: DEXTROSE 40% GEL 15 GM TUBE PO PRN ×2 (17:20)
[2019-01-19] MEDS ORDERED: DEXTROSE 50%-WATER 25 GM/50 ML DISP.SYRIN IV PRN ×2 (17:20)
[2019-01-19] MEDS ORDERED: PHARMACY COMMUNICATION ORDER MC NR (17:30)
[2019-01-19] MEDS ORDERED: PROMETHAZINE HCL 25 MG SUPP.RECT PR PRN (17:58)
[2019-01-19] MEDS ORDERED: ACETAMINOPHEN 650 MG SUPP.RECT PR PRN (17:58)
[2019-01-19] MEDS ORDERED: LABETALOL HCL INJ 20 MG/4 ML DISP.SYRIN IV PRN (18:04)
--- NOTE | 2019-01-19 18:08 | RADIOLOGY REPORT (SQ) ---
EXAM DESCRIPTION: KUB/ABDOMEN (SINGLE VIEW) COMPLETED DATE/TIME: 01/19/2019 5:19 pm REASON FOR STUDY: Confirmation placement of NG tube COMPARISON: Earlier CT NUMBER OF VIEWS: One view. TECHNIQUE: Supine radiographic image of the abdomen acquired. LIMITATIONS: None. FINDINGS: BOWEL GAS PATTERN: Similar small bowel obstructive bowel gas pattern. Multiple dilated lo ops in the left mid abdomen. CALCIFICATIONS: No suspicious calcifications. SOFT TISSUES: No gross mass or suggestion of organomegaly. HARDWARE: Nasogastric catheter is present with tip overlying the left lateral aspect of the stomach. Bilateral hip arthroplasty hardware. BONES: No acute fracture. No worrisome bone lesions. OTHER: No other significant finding. IMPRESSION: Nasogastric catheter is present with tip overlying the left lateral aspect of the stomac h.Similar small bowel obstructive bowel gas pattern. Multiple dilated loops in the left mid abdomen. TECHNICAL DOCUMENTATION: JOB ID: [id number] [place]-72 2010 [employer]- All Rights Reserved Reading location - IP/workstation name: [email or web address]
--- NOTE | 2019-01-19 18:19 | PDOC H&P ---
History of Present Illness Admission Date/PCP: 01/19/19 15:15 SHANI HALL MD Patient complains of: Nausea, vomiting, and diarrhea History of Present Illness: TRISTA NICOLE is a 53 year old female with a past medical history of rheumatoid arthritis and dwarfism. The patient presented to the emergency department via EMS with a chief complaint of epigastric pain, sharp and burning intermittent with nausea, vomiting and diarrhea starting last night. Pain does not migrate to the back or flanks. She has no urination. Patient did not have any documented fevers however according to her mother she did have an episode of diaphoresis during her vomiting. The patient did have a plain CT in the emergency department this was reviewed by the surgeon. At this time it is not felt to be a bowel obstruction. NGT was placed and referral to hospitalist piero franco for admission and management of ileus. Past Medical History Neurological Medical History: Reports: Other - Arnold Chiari Syndrome Renal/ Medical History: Reports: Nephrolithiasis Musculoskeltal Medical History: Reports: Arthritis - RA, Other - Dwarfism Social History Information Source: Patient, Parent Lives with: Family Smoking Status: Never Smoker Frequency of Alcohol Use: None Hx Recreational Drug Use: No Hx Prescription Drug Abuse: No - Advance Directive Resuscitation Status: Full Code Surrogate healthcare decision maker:: Mother Family History Family History: Reviewed & Not Pertinent Parental Family History Reviewed: Yes Children Family History Reviewed: NA Sibling(s) Family History Reviewed.: Yes Medication/Allergy Home Medications: Cholecalciferol (Vitamin D3) [Vitamin D3 1000 Unit Tablet] 1,000 unit PO DAILY 01/19/19 Loratadine [Claritin 10 mg Tablet] 10 mg PO DAILY 01/19/19 Methotrexate Sodium [Rheumatrex 2.5 mg Tablet] 20 mg PO MO@10 01/19/19 Prednisone [Deltasone 1 mg Tablet] 1 mg PO DAILY 01/19/19 RX: Folic Acid 0.8 mg PO DAILY 01/19/19 RX: Sulindac 150 mg PO Q12HP PRN 01/19/19 Tofacitinib Citrate [Xeljanz Xr] 11 mg PO DAILY 01/19/19 Tramadol HCl [Ultram 50 mg Tablet] 50 mg PO Q12HP PRN 01/19/19 Allergies/Adverse Reactions: ciprofloxacin [From Cipro] Allergy (Verified 01/19/19 10:20) codeine Allergy (Verified 01/19/19 10:20) ketorolac [From Toradol] Allergy (Verified 01/19/19 10:20) morphine Allergy (Verified 01/19/19 10:20) nitrofurantoin [From Macrobid] Allergy (Verified 01/19/19 10:20) oxycodone [From Percocet] Allergy (Verified 01/19/19 10:20) Penicillins Allergy (Verified 01/19/19 10:20) sulfamethoxazole [From Bactrim] Allergy (Verified 01/19/19 10:20) trimethoprim [From Bactrim] Allergy (Verified 01/19/19 10:20) imepenum Allergy (Uncoded 01/19/19 10:20) Review of Systems Constitutional: PRESENT: chills, night sweats, weakness. ABSENT: fever(s), headache(s), weight gain, weight loss Eyes: ABSENT: visual disturbances Ears: ABSENT: hearing changes Cardiovascular: ABSENT: chest pain, dyspnea on exertion, edema, orthropnea, palpitations Respiratory: ABSENT: cough, hemoptysis Gastrointestinal: PRESENT: diarrhea, nausea, vomiting. ABSENT: abdominal pain, constipation, hematemesis, hematochezia Genitourinary: ABSENT: dysuria, hematuria Musculoskeletal: ABSENT: joint swelling Integumentary: ABSENT: rash, wounds Neurological: ABSENT: abnormal gait, abnormal speech, confusion, dizziness, focal weakness, syncope Psychiatric: ABSENT: anxiety, depression, homidical ideation, suicidal ideation Endocrine: ABSENT: cold intolerance, heat intolerance, polydipsia, polyuria Hematologic/Lymphatic: ABSENT: easy bleeding, easy bruising Physical Exam Vital Signs: Temp Pulse Resp BP Pulse Ox 98.8 F 100 16 172/94 H 96 01/19/19 10:35 01/19/19 10:35 01/19/19 10:35 01/19/19 13:00 01/19/19 13:01 Intake & Output 01/17/19 01/18/19 01/19/19 23:59 23:59 23:59 Intake Total 1000 Balance 1000 Weight 66.8 kg General appearance: PRESENT: no acute distress, well-nourished Head exam: PRESENT: atraumatic, normocephalic Eye exam: PRESENT: conjunctiva pink, EOMI, PERRLA. ABSENT: scleral icterus Ear exam: PRESENT: normal external ear exam Mouth exam: PRESENT: moist, tongue midline Neck exam: ABSENT: carotid bruit, JVD, lymphadenopathy, thyromegaly Respiratory exam: PRESENT: clear to auscultation donovan. ABSENT: rales, rhonchi, wheezes Cardiovascular exam: PRESENT: RRR. ABSENT: diastolic murmur, rubs, systolic murmur Pulses: PRESENT: normal dorsalis pedis pul Vascular exam: PRESENT: normal capillary refill GI/Abdominal exam: PRESENT: normal bowel sounds, soft, other - Difusse tenderness. ABSENT: distended, guarding, mass, organolmegaly, rebound, tenderness Rectal exam: PRESENT: deferred Extremities exam: PRESENT: full ROM. ABSENT: calf tenderness, clubbing, pedal edema Neurological exam: PRESENT: alert, awake, oriented to person, oriented to place, oriented to time, oriented to situation, CN II-XII grossly intact. ABSENT: motor sensory deficit Psychiatric exam: PRESENT: appropriate affect, normal mood. ABSENT: homicidal ideation, suicidal ideation Skin exam: PRESENT: dry, intact, warm, other - appears flushed. ABSENT: cyanosis, rash Results Laboratory Results: Labs- Last Values WBC 10.1 10^3/uL (4.0-10.5) 01/19/19 12:48 RBC 4.66 10^6/uL (3.72-5.28) 01/19/19 12:48 Hgb 15.5 g/dL (12.0-15.5) 01/19/19 12:48 Hct 44.5 % (36.0-47.0) 01/19/19 12:48 MCV 95 fl (80-97) 01/19/19 12:48 MCH 33.2 pg (27.0-33.4) 01/19/19 12:48 MCHC 34.9 g/dL (32.0-36.0) 01/19/19 12:48 RDW 15.6 % (11.5-14.0) H 01/19/19 12:48 Plt Count 259 10^3/uL (150-450) 01/19/19 12:48 Total Counted 100 01/19/19 12:48 Seg Neutrophils % Not Reportable 01/19/19 12:48 Seg Neuts % (Manual) 92 % (42-78) H 01/19/19 12:48 Lymphocytes % Not Reportable 01/19/19 12:48 Lymphocytes % (Manual) 5 % (13-45) L 01/19/19 12:48 Monocytes % Not Reportable 01/19/19 12:48 Monocytes % (Manual) 3 % (3-13) 01/19/19 12:48 Eosinophils % Not Reportable 01/19/19 12:48 Eosinophils % (Manual) 0 % (0-6) 01/19/19 12:48 Basophils % Not Reportable 01/19/19 12:48 Basophils % (Manual) 0 % (0-2) 01/19/19 12:48 Absolute Neutrophils Not Reportable 01/19/19 12:48 Abs Neuts (Manual) 9.3 10^3/uL (1.7-8.2) H 01/19/19 12:48 Absolute Lymphocytes Not Reportable 01/19/19 12:48 Abs Lymphs (Manual) 0.5 10^3/uL (0.5-4.7) 01/19/19 12:48 Absolute Monocytes Not Reportable 01/19/19 12:48 Abs Monocytes (Manual) 0.3 10^3/uL (0.1-1.4) 01/19/19 12:48 Absolute Eosinophils Not Reportable 01/19/19 12:48 Absolute Eos (Manual) 0.0 10^3/uL (0.0-0.6) 01/19/19 12:48 Absolute Basophils Not Reportable 01/19/19 12:48 Abs Basophils (Manual) 0.0 10^3/uL (0.0-0.2) 01/19/19 12:48 Platelet Comment ADEQUATE 01/19/19 12:48 Poikilocytosis SLIGHT 01/19/19 12:48 Anisocytosis SLIGHT 01/19/19 12:48 Tear Drop Cells SLIGHT 01/19/19 12:48 Ovalocytes SLIGHT 01/19/19 12:48 Sodium 141.6 mmol/L (137-145) 01/19/19 11:48 Potassium 3.8 mmol/L (3.6-5.0) 01/19/19 11:48 Chloride 105 mmol/L (98-107) 01/19/19 11:48 Carbon Dioxide 26 mmol/L (22-30) 01/19/19 11:48 Anion Gap 11 (5-19) 01/19/19 11:48 BUN 17 mg/dL (7-20) 01/19/19 11:48 Creatinine 0.66 mg/dL (0.52-1.25) 01/19/19 11:48 Est GFR ( Amer) > 60 (>60) 01/19/19 11:48 Est GFR (Non-Af Amer) > 60 (>60) 01/19/19 11:48 Glucose 115 mg/dL (75-110) H 01/19/19 11:48 Calcium 10.6 mg/dL (8.4-10.2) H 01/19/19 11:48 Total Bilirubin 1.0 mg/dL (0.2-1.3) 01/19/19 11:48 Direct Bilirubin 0.4 mg/dL (0.0-0.4) 01/19/19 11:48 Neonat Total Bilirubin Not Reportable 01/19/19 11:48 Neonat Direct Bilirubin Not Reportable 01/19/19 11:48 Neonat Indirect Bili Not Reportable 01/19/19 11:48 AST 37 U/L (14-36) H 01/19/19 11:48 ALT 30 U/L (9-52) 01/19/19 11:48 Alkaline Phosphatase 156 U/L (38-126) H 01/19/19 11:48 Total Protein 7.9 g/dL (6.3-8.2) 01/19/19 11:48 Albumin 4.6 g/dL (3.5-5.0) 01/19/19 11:48 Lipase 115.4 U/L (23-300) 01/19/19 11:48 Serum HCG, Qual NEGATIVE (NEGATIVE) 01/19/19 11:48 Urine Color YELLOW 01/19/19 12:32 Urine Appearance CLOUDY 01/19/19 12:32 Urine pH 9.0 (5.0-9.0) 01/19/19 12:32 Ur Specific [place] 1.013 01/19/19 12:32 Urine Protein NEGATIVE mg/dL (NEGATIVE) 01/19/19 12:32 Urine Glucose (UA) NEGATIVE mg/dL (NEGATIVE) 01/19/19 12:32 Urine Ketones TRACE mg/dL (NEGATIVE) H 01/19/19 12:32 Urine Blood NEGATIVE (NEGATIVE) 01/19/19 12:32 Urine Nitrite NEGATIVE (NEGATIVE) 01/19/19 12:32 Urine Bilirubin NEGATIVE (NEGATIVE) 01/19/19 12:32 Urine Urobilinogen 2.0 mg/dL (<2.0) H 01/19/19 12:32 Ur Leukocyte Esterase NEGATIVE (NEGATIVE) 01/19/19 12:32 Urine WBC (Auto) 2 /HPF 01/19/19 12:32 Urine RBC (Auto) 5 /HPF 01/19/19 12:32 Squamous Epi Cells Auto <1 /HPF 01/19/19 12:32 Amorphous Sediment Auto TRACE /HPF 01/19/19 12:32 Urine Ascorbic Acid NEGATIVE (NEGATIVE) 01/19/19 12:32 Impressions: Abdomen/Pelvis CT 01/19/19 13:28 IMPRESSION: 1. There are multiple loops of fluid-filled and fecalized proximal small bowel in the mid abdomen and left upper quadrant. There is a tightly knuckled transition point in the anterior central abdomen (series 3, image 55, series 601, image 19). Findings are consistent with small bowel obstruction. 2. Cholelithiasis. 3. Nonobstructive nephrolithiasis. Assessment and Plan - Diagnosis (1) Ileus Is this a current diagnosis for this admission?: Yes Plan: NGT in place. Consult surgery. Continue supportive care of IVF and antiemetic. (2) AGE (acute gastroenteritis) Is this a current diagnosis for this admission?: Yes Plan: As per the above. No fevers or bandemia. Will defer antibiotics for now and monitor. - Time Time Spent with patient: 35 or more minutes Medications reviewed and adjusted accordingly: Yes Anticipated discharge: Home Within: within 48 hours - Inpatient Certification Medical Necessity: Need For IV Fluids, Need for Pain Control Post Hospital Care: D/C or Transfer Summary
[2019-01-19] MEDS ORDERED: ENALAPRILAT DIHYDRATE INJ/PF 2.5 MG/2 ML SDV IV PRN (18:36)
[2019-01-19] MEDS: ONDANSETRON HCL INJ/PF 4 MG/2 ML SDV IV PRN ×2 (19:18→23:34)
--- NOTE | 2019-01-19 20:27 | RADIOLOGY REPORT (SQ) ---
EXAM DESCRIPTION: CT ABDOMEN PELVIS WITHOUT IV CONTRAST COMPLETED DATE/TME: 01/19/2019 14:44 CLINICAL HISTORY: 53 years, Female, SBO COMPARISON: Prior study from 12/05/2017 TECHNIQUE: Noncontrast CT of the abdomen/pelvis was performed. Coronal and sagittal reformations were created. Images stored on PACS. All CT scanners at this facility use dose modulation, iterative reconstruction, and/or weight based dosing when appropriate to reduce radiation dose to as low as reasonably achievable (ALARA). [facility]: Dose Right [facility]: CareDose [facility]: Dose Right [facility]: Teradose 4D [facility]: [employer] LIMITATIONS: None. FINDINGS: Limited evaluation of the lower chest reveals bibasilar atelectasis. The liver, spleen, pancreas, and both adrenal glands appear normal. Gallstones are noted about the gallbladder lumen. Several of these gallstones appear to closely approximate the cystic duct, similar to the previous exam dated 12/05/2017. Several nephroliths are noted about both kidneys, the largest of which is located about the upper pole of the right kidney measuring 1.1 x 0.67 m in size. There is no hydronephrosis or hydroureter. The urinary bladder is partially collapsed, thus its evaluation is limited. A segment of small bowel is diffusely dilated and fluid-filled, transitioning to a point about the mid abdomen on image 48 of series 3. Associated small bowel wall thickening is noted as well as mild inflammatory stranding, new from the previous exam. In addition, the small bowel just proximal to the transition point appears fecalized. The remainder of the small bowel appears largely collapsed. No suspicious lymphadenopathy is appreciated. There are no drainable fluid collections. Vascular structures appear overall normal in their noncontrast appearance. No subdiaphragmatic free air is appreciated. Bone windows show bilateral total hip arthroplasties. There are no destructive osseous lesions. IMPRESSION: Findings remain consistent with a small bowel obstruction with transition point located about the lower midabdomen. The degree of small bowel wall thickening and mesenteric edema appears increased, raising the possibility of vascular compromise/infarction. No evidence of perforation. Bilateral nonobstructive nephrolithiasis. Cholelithiasis. TECHNICAL DOCUMENTATION: Quality ID # [id number]: Final reports with documentation of one or more dose reduction techniques (e.g., Automated exposure control, adjustment of the mA and/or kV according to patient size, use of iterative reconstruction technique) copyright 2011 [employer]- All Rights Reserved
[2019-01-19] MEDS: NORMAL SALINE 1000 ML 1,000 ML IV PRN (21:03)
[2019-01-19] MEDS: PANTOPRAZOLE SODIUM 40 MG VIAL IV SCH (21:03)
[2019-01-19] MEDS: HYDROMORPHONE HCL INJ/PF 2 MG/ML AMPULE IV PRN (23:34)
[2019-01-20 06:40] LABS: ABSOLUTE LYMPHOCYTES (AUTO) 0.8 10^3/uL (0.5-4.7); ABSOLUTE MONOCYTES (AUTO) 1.1 10^3/uL (0.1-1.4); ABSOLUTE NEUT (AUTO) 8.8 10^3/uL (1.7-8.2); BASOPHILS % (AUTO) 0.1 % (0-2); EOSINOPHILS % (AUTO) 0.1 % (0-6); HEMATOCRIT 37.8 % (36.0-47.0); LYMPHOCYTES % (AUTO) 7.8 % (13-45); MEAN CORPUSCULAR HEMOGLOBIN 33.5 pg (27.0-33.4); MEAN CORPUSCULAR HGB CONC 34.8 g/dL (32.0-36.0); MEAN CORPUSCULAR VOLUME 96 fl (80-97); PLATELET COUNT 194 10^3/uL (150-450); RED BLOOD COUNT 3.93 10^6/uL (3.72-5.28); RED CELL DISTRIBUTION WIDTH 15.3 % (11.5-14.0); TOTAL CELLS COUNTED % (AUTO) 100 %; WHITE BLOOD COUNT 10.7 10^3/uL (4.0-10.5)
[2019-01-20 06:49] LABS: HEMOGLOBIN 13.2 g/dL (12.0-15.5)
[2019-01-20 06:52] LABS: ANION GAP 7 (5-19); BLOOD UREA NITROGEN 13 mg/dL (7-20); CALCIUM 8.5 mg/dL (8.4-10.2); CARBON DIOXIDE 24 mmol/L (22-30); CHLORIDE 110 mmol/L (98-107); GLUCOSE 89 mg/dL (75-110); POTASSIUM 3.4 mmol/L (3.6-5.0); SODIUM 140.7 mmol/L (137-145)
[2019-01-20] MEDS: NORMAL SALINE 1000 ML 1,000 ML IV PRN ×2 (07:53→17:57)
[2019-01-20] MEDS: PANTOPRAZOLE SODIUM 40 MG VIAL IV SCH ×2 (09:33→21:11)
[2019-01-20] MEDS: ENOXAPARIN SODIUM INJ 30 MG/0.3 ML DISP.SYRIN SUBCUT SCH (09:34)
[2019-01-20] MEDS ORDERED: POTASSI CL 20 MEQ/50 ML RIDER 20 MEQ/50 ML RTUPB IV ONE (12:45)
--- NOTE | 2019-01-20 13:10 | RADIOLOGY REPORT (SQ) ---
EXAM DESCRIPTION: ACUTE ABDOMEN SERIES COMPLETED DATE/TIME: 01/20/2019 12:59 pm REASON FOR STUDY: f/u SBO identified on CT scan; ileus? COMPARISON: None. NUMBER OF VIEWS: Three views. TECHNIQUE: Frontal chest, supine abdomen and upright/decubitus abdomen radiographic images acquired. LIMITATIONS: None. FINDINGS: CHEST: Lungs clear of infiltrates. FREE AIR: None. No abnormal gas collections. BOWEL GAS PATTERN: There are a few mildly prominent air-filled loops of small bowel. CALCIFICATIONS: No suspicious calcifications. HARDWARE: An NG tube terminates in the distal esophagus. SOFT TISSUES: No gross mass or suggestion of organomegaly. BONES: No acute fracture. No worrisome bone lesions. OTHER: No other significant finding. IMPRESSION: NG tube in the distal esophagus. There are a few mildly prominent air-filled loops of s mall bowel. Ileus versus partial bowel obstruction. TECHNICAL DOCUMENTATION: JOB ID: [id number] [facility]- All Rights Reserved Reading location - IP/workstation name: [email or web address]
[2019-01-20] MEDS: ACETAMINOPHEN 650 MG SUPP.RECT PR PRN ×2 (13:25→21:11)
[2019-01-20] MEDS ORDERED: PHENOL/SODIUM PHENOLATE 100 SPRAY/177 ML BOTTLE PO PRN (14:47)
--- NOTE | 2019-01-20 17:15 | PDOC PROGRESS REPORT ---
Subjective Progress Note for:: 01/20/19 Subjective:: No adverse events overnight. Her only complaint is that the NG tube is bothering the back of her throat. She wants to know when the tube can come out. She would also like to have something to drink. Reason For Visit: AGE WITH ILEUS Physical Exam Vital Signs: Temp Pulse Resp BP Pulse Ox 98.3 F 89 16 144/85 H 97 01/20/19 15:45 01/20/19 15:45 01/20/19 15:45 01/20/19 15:45 01/20/19 15:45 Intake & Output 01/19/19 01/20/19 01/21/19 06:59 06:59 06:59 Intake Total 1999 1090 Balance 1999 1090 Weight 66.8 kg General appearance: PRESENT: no acute distress, cooperative, disheveled Head exam: PRESENT: atraumatic, normocephalic, other - NG tube in place Respiratory exam: PRESENT: clear to auscultation donovan, symmetrical, unlabored. ABSENT: accessory muscle use, crackles, decreased breath sounds, prolonged expiratory phas, rhonchi, tachypnea, wheezes Cardiovascular exam: PRESENT: RRR, +S1, +S2 Pulses: PRESENT: normal carotid pulses Vascular exam: PRESENT: normal capillary refill GI/Abdominal exam: PRESENT: diminished bowel sounds, soft. ABSENT: distended, guarding, rebound, tenderness Extremities exam: ABSENT: clubbing, pedal edema Musculoskeletal exam: PRESENT: normal inspection. ABSENT: deformity Neurological exam: PRESENT: alert, awake, oriented to person, oriented to place, oriented to time, oriented to situation Psychiatric exam: PRESENT: appropriate affect, normal mood Skin exam: PRESENT: dry, warm Results Laboratory Results: 01/20/19 06:05 01/20/19 06:05 01/20/19 01/20/19 06:05 06:05 WBC 10.7 H RBC 3.93 Hgb 13.2 D Hct 37.8 MCV 96 MCH 33.5 H MCHC 34.8 RDW 15.3 H Plt Count 194 Seg Neutrophils % 82.0 H Lymphocytes % 7.8 L Monocytes % 10.0 Eosinophils % 0.1 Basophils % 0.1 Absolute Neutrophils 8.8 H Absolute Lymphocytes 0.8 Absolute Monocytes 1.1 Absolute Eosinophils 0.0 Absolute Basophils 0.0 Sodium 140.7 Potassium 3.4 L Chloride 110 H Carbon Dioxide 24 Anion Gap 7 BUN 13 Creatinine 0.64 Est GFR ( Amer) > 60 Est GFR (Non-Af Amer) > 60 Glucose 89 Calcium 8.5 Magnesium 1.8 Impressions: KUB X-Ray 01/19/19 00:00 IMPRESSION: Nasogastric catheter is present with tip overlying the left lateral aspect of the stomach.Similar small bowel obstructive bowel gas pattern. Multip le dilated loops in the left mid abdomen. Abdomen/Pelvis CT 01/19/19 14:44 IMPRESSION: Findings remain consistent with a small bowel obstruction with transition point located about the lower midabdomen. The degree of small bowel wall thickening and mesenteric edema appears increased, raising the possibility of vascular compromise/infarction. No evidence of perforation. Bilateral nonobstructive nephrolithiasis. Cholelithiasis. TECHNICAL DOCUMENTATION: Quality ID # 436: Final reports with documentation of one or more dose reduction techniques (e.g., Automated exposure control, adjustment of the mA and/or kV according to patient size, use of iterative reconstruction technique) copyright 2011 [employer]- All Rights Reserved Acute Abdomen Series 01/20/19 06:00 IMPRESSION: NG tube in the distal esophagus. There are a few mildly prominent air-filled loops of small bowel. Ileus versus partial bowel obstruction. Assessment and Plan - Diagnosis (1) Small bowel obstruction Is this a current diagnosis for this admission?: Yes Plan: NG tube in place to suction. N.p.o. Surgery is been consulted. An acute abdominal series has been ordered for follow-up. - Time Time Spent with patient: 15-24 minutes
--- NOTE | 2019-01-20 19:54 | PDOC PROGRESS REPORT ---
Subjective Progress Note for:: 01/20/19 Subjective:: This is a 53-year-old female with a small bowel obstruction of unknown origin. The patient has CT scan showing dilation of the small bowel with fecalization, without an obvious transition zone. Currently the patient reports that her abdominal pain has subsided. She reports very little output from her NG tube. She is feeling well. She denies any flatus or recent bowel movement. She denies chest pain, shortness of breath, fevers, chills, nausea, vomiting, dis tention, abdominal pain, dysuria, or other complaint. Reason For Visit: AGE WITH ILEUS Physical Exam Vital Signs: Temp Pulse Resp BP Pulse Ox 98.3 F 92 16 144/85 H 97 01/20/19 15:45 01/20/19 19:00 01/20/19 15:45 01/20/19 15:45 01/20/19 15:45 Intake & Output 01/19/19 01/20/19 01/21/19 06:59 06:59 06:59 Intake Total 1999 2139 Balance 1999 2139 Weight 66.8 kg General appearance: PRESENT: no acute distress, cooperative Head exam: PRESENT: atraumatic, normocephalic Eye exam: PRESENT: EOMI, PERRLA. ABSENT: scleral icterus Mouth exam: PRESENT: moist, neck supple Neck exam: ABSENT: meningismus, tenderness, thyromegaly, tracheal deviation Cardiovascular exam: PRESENT: RRR Pulses: PRESENT: normal radial pulses GI/Abdominal exam: PRESENT: soft. ABSENT: distended, firm, guarding, rigid, tenderness Rectal exam: PRESENT: deferred Extremities exam: ABSENT: clubbing Neurological exam: PRESENT: alert, awake, oriented to person, oriented to place, oriented to time, oriented to situation Psychiatric exam: ABSENT: agitated, anxious, depressed Focused psych exam: ABSENT: delusional Skin exam: ABSENT: cyanosis, erythema, jaundice Results Laboratory Results: 01/20/19 06:05 01/20/19 06:05 01/20/19 01/20/19 06:05 06:05 WBC 10.7 H RBC 3.93 Hgb 13.2 D Hct 37.8 MCV 96 MCH 33.5 H MCHC 34.8 RDW 15.3 H Plt Count 194 Seg Neutrophils % 82.0 H Lymphocytes % 7.8 L Monocytes % 10.0 Eosinophils % 0.1 Basophils % 0.1 Absolute Neutrophils 8.8 H Absolute Lymphocytes 0.8 Absolute Monocytes 1.1 Absolute Eosinophils 0.0 Absolute Basophils 0.0 Sodium 140.7 Potassium 3.4 L Chloride 110 H Carbon Dioxide 24 Anion Gap 7 BUN 13 Creatinine 0.64 Est GFR ( Amer) > 60 Est GFR (Non-Af Amer) > 60 Glucose 89 Calcium 8.5 Magnesium 1.8 Impressions: KUB X-Ray 01/19/19 00:00 IMPRESSION: Nasogastric catheter is present with tip overlying the left lateral aspect of the stomach.Similar small bowel obstructive bowel gas pattern. Multiple dilated loops in the left mid abdomen. Abdomen/Pelvis CT 01/19/19 14:44 IMPRESSION: Findings remain consistent with a small bowel obstruction with transition point located about the lower midabdomen. The degree of small bowel wall thickening and mesenteric edema appears increased, raising the possibility of vascular compromise/infarction. No evidence of perforation. Bilateral nonobstructive nephrolithiasis. Cholelithiasis. TECHNICAL DOCUMENTATION: Quality ID # 436: Final reports with documentation of one or more dose reduction techniques (e.g., Automated exposure control, adjustment of the mA and/or kV according to patient size, use of iterative reconstruction technique) copyright 2011 [email or web address]- All Rights Reserved Acute Abdomen Series 01/20/19 06:00 IMPRESSION: NG tube in the distal esophagus. There are a few mildly prominent air-filled loops of small bowel. Ileus versus partial bowel obstruction. Assessment & Plan - Diagnosis (1) Small bowel obstruction Is this a current diagnosis for this admission?: Yes - Plan Summary Plan Summary: This is a 53-year-old female with a small bowel obstruction of unknown origin. Patient reports that her abdominal pain has essentially resolved. There is very little out from her NG tube. Patient reports no flatus today, or bowel movement. Maintain NG tube for now. I have reviewed her abdominal x-rays. They do show a slightly dilated small bowel, however there is air in the colon. Awaiting bowel function. Continue NG tube and IV fluids. Okay for popsicles and ice chips. Hypokalemia: Replace.
[2019-01-21] MEDS: HYDROMORPHONE HCL INJ/PF 2 MG/ML AMPULE IV PRN (00:32)
[2019-01-21 05:12] LABS: ABSOLUTE EOSINOPHILS # (AUTO) 0.1 10^3/uL (0.0-0.6); ABSOLUTE LYMPHOCYTES (AUTO) 0.8 10^3/uL (0.5-4.7); ABSOLUTE MONOCYTES (AUTO) 0.7 10^3/uL (0.1-1.4); BASOPHILS % (AUTO) 0.2 % (0-2); EOSINOPHILS % (AUTO) 0.7 % (0-6); HEMATOCRIT 37.9 % (36.0-47.0); HEMOGLOBIN 13.3 g/dL (12.0-15.5); MEAN CORPUSCULAR HEMOGLOBIN 33.3 pg (27.0-33.4); MEAN CORPUSCULAR VOLUME 95 fl (80-97); MONOCYTES % (AUTO) 9.3 % (3-13); PLATELET COUNT 196 10^3/uL (150-450); RED BLOOD COUNT 3.98 10^6/uL (3.72-5.28); RED CELL DISTRIBUTION WIDTH 14.9 % (11.5-14.0); SEGMENTED NEUTROPHILS % (AUTO) 78.8 % (42-78); TOTAL CELLS COUNTED % (AUTO) 100 %; WHITE BLOOD COUNT 7.6 10^3/uL (4.0-10.5)
[2019-01-21 05:30] LABS: ANION GAP 5 (5-19); BLOOD UREA NITROGEN 8 mg/dL (7-20); CALCIUM 8.6 mg/dL (8.4-10.2); CARBON DIOXIDE 23 mmol/L (22-30); CHLORIDE 111 mmol/L (98-107); GLUCOSE 72 mg/dL (75-110); POTASSIUM 3.4 mmol/L (3.6-5.0); SODIUM 139.2 mmol/L (137-145)
--- NOTE | 2019-01-21 09:13 | PDOC PROGRESS REPORT ---
Subjective Progress Note for:: 01/21/19 Subjective:: not passing flatus abd feels better Reason For Visit: AGE WITH ILEUS Physical Exam Vital Signs: Temp Pulse Resp BP Pulse Ox 98.6 F 85 16 141/76 H 91 L 01/21/19 03:34 01/21/19 07:00 01/21/19 03:34 01/21/19 03:34 01/21/19 03:34 Intake & Output 01/20/19 01/21/19 01/22/19 06:59 06:59 06:59 Intake Total 1999 2229 Balance 1999 2229 Weight 66.8 kg 66.8 kg General appearance: PRESENT: no acute distress Eye exam: PRESENT: EOMI Mouth exam: PRESENT: moist Neck exam: PRESENT: full ROM Respiratory exam: PRESENT: clear to auscultation donovan Cardiovascular exam: PRESENT: RRR GI/Abdominal exam: PRESENT: hypoactive bowel sounds, soft Extremities exam: PRESENT: full ROM Musculoskeletal exam: PRESENT: full ROM Neurological exam: PRESENT: alert, awake, oriented to person, oriented to place Results Laboratory Results: 01/21/19 04:47 01/21/19 04:47 01/21/19 01/21/19 04:47 04:47 WBC 7.6 RBC 3.98 Hgb 13.3 Hct 37.9 MCV 95 MCH 33.3 MCHC 35.0 RDW 14.9 H Plt Count 196 Seg Neutrophils % 78.8 H Lymphocytes % 11.0 L Monocytes % 9.3 Eosinophils % 0.7 Basophils % 0.2 Absolute Neutrophils 6.0 Absolute Lymphocytes 0.8 Absolute Monocytes 0.7 Absolute Eosinophils 0.1 Absolute Basophils 0.0 Sodium 139.2 Potassium 3.4 L Chloride 111 H Carbon Dioxide 23 Anion Gap 5 BUN 8 Creatinine 0.58 Est GFR ( Amer) > 60 Est GFR (Non-Af Amer) > 60 Glucose 72 L Calcium 8.6 Impressions: KUB X-Ray 01/19/19 00:00 IMPRESSION: Nasogastric catheter is present with tip overlying the left lateral aspect of the stomach.Similar small bowel obstructive bowel gas pattern. Multiple dilated loops in the left mid abdomen. Abdomen/Pelvis CT 01/19/19 14:44 IMPRESSION: Findings remain consistent with a small bowel obstruction with transition point located about the lower midabdomen. The degree of small bowel wall thickening and mesenteric edema appears increased, raising the possibility of vascular compromise/infarction. No evidence of perforation. Bilateral nonobstructive nephrolithiasis. Cholelithiasis. TECHNICAL DOCUMENTATION: Quality ID # 436: Final reports with documentation of one or more dose reduction techniques (e.g., Automated exposure control, adjustment of the mA and/or kV according to patient size, use of iterative reconstruction technique) copyright 2011 [employer]- All Rights Reserved Acute Abdomen Series 01/20/19 06:00 IMPRESSION: NG tube in the distal esophagus. There are a few mildly prominent air-filled loops of small bowel. Ileus versus partial bowel obstruction. Assessment & Plan - Plan Summary Plan Summary: abd soft, non tender I suggested a gastografin small bowel series to dx and possiby rx the sbo pt refuses\ does not want a small bowel series as she is afraid of diarrhea she understnds that despite what the kub shows, I will not remove the ng untill she shows evidence of resolving the sbo
[2019-01-21] MEDS: ENOXAPARIN SODIUM INJ 30 MG/0.3 ML DISP.SYRIN SUBCUT SCH (09:21)
[2019-01-21] MEDS: PANTOPRAZOLE SODIUM 40 MG VIAL IV SCH ×2 (09:21→21:10)
--- NOTE | 2019-01-21 10:24 | RADIOLOGY REPORT (SQ) ---
EXAM DESCRIPTION: KUB/ABDOMEN (SINGLE VIEW) COMPLETED DATE/TIME: 01/21/2019 9:46 am REASON FOR STUDY: sbo COMPARISON: 01/20/2019 NUMBER OF VIEWS: One view. TECHNIQUE: Supine radiographic image of the abdomen acquired. LIMITATIONS: None. FINDINGS: BOWEL GAS PATTERN: Mildly dilated loops in the mid aspect of the abdomen slight increase in small bowel dilatation since the prior study. CALCIFICATIONS: No suspicious calcifications. SOFT TISSUES: No gross mass or suggestion of organomegaly. HARDWARE: Nasogastric tube is again identified, unchanged in position. BONES: No acute fracture. No worrisome bone lesions. OTHER: No other significant finding. IMPRESSION: 1. Mildly dilated small bowel loops in the mid aspect of the abdomen. Slight increase in small bowel dilatation since the prior examination dated 01/20/2019. TECHNICAL DOCUMENTATION: JOB ID: [id number] [employer]- All Rights Reserved Reading location - IP/workstation name: [email or web address]
[2019-01-21] MEDS ORDERED: DEXTROSE 40% GEL 15 GM TUBE NG PRN ×2 (10:30)
[2019-01-21] MEDS: ACETAMINOPHEN 650 MG SUPP.RECT PR PRN (15:05)
--- NOTE | 2019-01-21 16:32 | PDOC PROGRESS REPORT ---
Subjective Progress Note for:: 01/21/19 Subjective:: No adverse events overnight. No new complaints. She really wants the NG tube out. She does not want to do the barium swallow but finally agreed to. Reason For Visit: AGE WITH ILEUS Physical Exam Vital Signs: Temp Pulse Resp BP Pulse Ox 98.6 F 95 16 141/76 H 91 L 01/21/19 03:34 01/21/19 14:00 01/21/19 03:34 01/21/19 03:34 01/21/19 03:34 Intake & Output 01/20/19 01/21/19 01/22/19 06:59 06:59 06:59 Intake Total 1999 2229 Balance 1999 2229 Weight 66.8 kg 66.8 kg General appearance: PRESENT: no acute distress, cooperative, disheveled Head exam: PRESENT: atraumatic, normocephalic, other - NG tube in place Respiratory exam: PRESENT: clear to auscultation donovan, symmetrical, unlabored. ABSENT: accessory muscle use, crackles, decreased breath sounds, prolonged expiratory phas, rhonchi, tachypnea, wheezes Cardiovascular exam: PRESENT: RRR, +S1, +S2 Pulses: PRESENT: normal carotid pulses Vascular exam: PRESENT: normal capillary refill GI/Abdominal exam: PRESENT: diminished bowel sounds, soft. ABSENT: distended, guarding, rebound, tenderness Extremities exam: ABSENT: clubbing, pedal edema Musculoskeletal exam: PRESENT: normal inspection. ABSENT: deformity Neurological exam: PRESENT: alert, awake, oriented to person, oriented to place, oriented to time, oriented to situation Psychiatric exam: PRESENT: appropriate affect, normal mood Skin exam: PRESENT: dry, warm Results Laboratory Results: 01/21/19 04:47 01/21/19 04:47 01/21/19 01/21/19 04:47 04:47 WBC 7.6 RBC 3.98 Hgb 13.3 Hct 37.9 MCV 95 MCH 33.3 MCHC 35.0 RDW 14.9 H Plt Count 196 Seg Neutrophils % 78.8 H Lymphocytes % 11.0 L Monocytes % 9.3 Eosinophils % 0.7 Basophils % 0.2 Absolute Neutrophils 6.0 Absolute Lymphocytes 0.8 Absolute Monocytes 0.7 Absolute Eosinophils 0.1 Absolute Basophils 0.0 Sodium 139.2 Potassium 3.4 L Chloride 111 H Carbon Dioxide 23 Anion Gap 5 BUN 8 Creatinine 0.58 Est GFR ( Amer) > 60 Est GFR (Non-Af Amer) > 60 Glucose 72 L Calcium 8.6 Impressions: Abdomen/Pelvis CT 01/19/19 14:44 IMPRESSION: Findings remain consistent with a small bowel obstruction with transition point located about the lower midabdomen. The degree of small bowel wall thickening and mesenteric edema appears increased, raising the possibility of vascular compromise/infarction. No evidence of perforation. Bilateral nonobstructive nephrolithiasis. Cholelithiasis. TECHNICAL DOCUMENTATION: Quality ID # 436: Final reports with documentation of one or more dose reduction techniques (e.g., Automated exposure control, adjustment of the mA and/or kV according to patient size, use of iterative reconstruction technique) copyright 2011 [employer]- All Rights Reserved Acute Abdomen Series 01/20/19 06:00 IMPRESSION: NG tube in the distal esophagus. There are a few mildly prominent air-filled loops of small bowel. Ileus versus partial bowel obstruction. KUB X-Ray 01/21/19 06:00 IMPRESSION: 1. Mildly dilated small bowel loops in the mid aspect of the abdomen. Slight increase in small bowel dilatation since the prior examination dated 01/20/2019. Assessment and Plan - Diagnosis (1) Small bowel obstruction Is this a current diagnosis for this admission?: Yes Plan: NG tube still on place. She had a small bowel series done, awaiting the results and further recommendations from surgery. - Time Time Spent with patient: 15-24 minutes
--- NOTE | 2019-01-21 18:56 | RADIOLOGY REPORT (SQ) ---
EXAM DESCRIPTION: SMALL BOWEL SERIES COMPLETED DATE/TIME: 01/21/2019 5:31 pm REASON FOR STUDY: SBO COMPARISON: None. FLUOROSCOPY TIME: None. 6 images were obtained. LIMITATIONS: None. PROCEDURE: Initial lurer image of abdomen acquired, followed by administration of oral contrast. Se rial radiographic images acquired. Fluoroscopic images recorded of the terminal ileum and other sylvester cated areas. All images stored on PACS. 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 STOMACH: Mild reflux. Stomach distends normally. DUODENUM: Normal mucosal pattern with adequate distention. No displacement or obstruction. JEJUNUM: Normal mucosal pattern. No dilatation, segmentation, strictures or masses. ILEUM: Normal mucosal pattern. No dilatation, segmentation, strictures or masses. TERMINAL ILEUM AND ILEO-CECAL VALVE: Normal mucosal pattern. PROXIMAL COLON: Unremarkable. OTHER: No other significant finding. IMPRESSION: NORMAL SMALL BOWEL EXAM. COMMENT: Quality ID 145: Final reports for procedures using fluoroscopy that document radiation exp osure indices, or exposure time and number of fluorographic images (if radiation exposure indices are not available) TECHNICAL DOCUMENTATION: JOB ID: [id number] [email or web address]- All Rights Reserved Reading location - IP/workstation name: [email or web address]
[2019-01-21] MEDS: ONDANSETRON HCL INJ/PF 4 MG/2 ML SDV IV PRN (20:24)
[2019-01-21] MEDS: METOCLOPRAMIDE HCL INJ/PF 10 MG/2 ML SDV IV PRN (22:37)
[2019-01-22] MEDS: ONDANSETRON HCL INJ/PF 4 MG/2 ML SDV IV PRN (03:33)
[2019-01-22] MEDS: HYDROMORPHONE HCL INJ/PF 2 MG/ML AMPULE IV PRN (07:18)
[2019-01-22] MEDS: METOCLOPRAMIDE HCL INJ/PF 10 MG/2 ML SDV IV PRN (07:18)
--- NOTE | 2019-01-22 08:28 | PDOC PROGRESS REPORT ---
Subjective Progress Note for:: 01/22/19 Subjective:: pains left side abdomen Reason For Visit: AGE WITH ILEUS Physical Exam Vital Signs: Temp Pulse Resp BP Pulse Ox 99.6 F 83 16 154/93 H 97 01/22/19 04:00 01/22/19 07:00 01/22/19 04:00 01/22/19 04:00 01/22/19 04:00 Intake & Output 01/21/19 01/22/19 01/23/19 06:59 06:59 06:59 Intake Total 2230 480 Balance 2230 480 Weight 66.8 kg 66.8 kg Exam: Abdomen is soft with mild tenderness left side,upper quadrant. Apparently been vomiting past few days and this maybe more of muscle strain from N/V. Has opened up with BM and flatus last night No SBO on Abdomen series yesterday Results Laboratory Results: 01/21/19 04:47 01/21/19 04:47 Impressions: Abdomen/Pelvis CT 01/19/19 14:44 IMPRESSION: Findings remain consistent with a small bowel obstruction with transition point located about the lower midabdomen. The degree of small bowel wall thickening and mesenteric edema appears increased, raising the possibility of vascular compromise/infarction. No evidence of perforation. Bilateral nonobstructive nephrolithiasis. Cholelithiasis. TECHNICAL DOCUMENTATION: Quality ID # 436: Final reports with documentation of one or more dose reduction techniques (e.g., Automated exposure control, adjustment of the mA and/or kV according to patient size, use of iterative reconstruction technique) copyright 2011 [employer]- All Rights Reserved Acute Abdomen Series 01/20/19 06:00 IMPRESSION: NG tube in the distal esophagus. There are a few mildly prominent air-filled loops of small bowel. Ileus versus partial bowel obstruction. KUB X-Ray 01/21/19 06:00 IMPRESSION: 1. Mildly dilated small bowel loops in the mid aspect of the abdomen. Slight increase in small bowel dilatation since the prior examination dated 01/20/2019. Small Bowel X-Ray 01/21/19 14:08 IMPRESSION: NORMAL SMALL BOWEL EXAM. Assessment & Plan - Time Time Spent with patient: 15-24 minutes - Plan Summary Plan Summary: Continue gradually increase diet. Will sign off. Call for any questions.
[2019-01-22] MEDS: ENOXAPARIN SODIUM INJ 30 MG/0.3 ML DISP.SYRIN SUBCUT SCH (09:49)
[2019-01-22] MEDS: PANTOPRAZOLE SODIUM 40 MG VIAL IV SCH (09:49)
[2019-01-22] MEDS: NORMAL SALINE 1000 ML 1,000 ML IV PRN (12:47)
[2019-01-22] MEDS ORDERED: HYDROMORPHONE HCL INJ/PF 2 MG/ML AMPULE IV PRN (19:30)
--- NOTE | 2019-01-22 19:33 | PDOC PROGRESS REPORT ---
Subjective Progress Note for:: 01/22/19 Subjective:: No adverse events overnight. No new complaints. NG tube is been discontinued. She is been tolerating clear liquids. No nausea or vomiting. She has been having bowel movements and passing gas. Reason For Visit: AGE WITH ILEUS Physical Exam Vital Signs: Temp Pulse Resp BP Pulse Ox 98.2 F 68 17 159/67 H 97 01/22/19 14:51 01/22/19 14:51 01/22/19 14:51 01/22/19 14:51 01/22/19 14:51 Intake & Output 01/21/19 01/22/19 01/23/19 06:59 06:59 06:59 Intake Total 3230 480 1742 Balance 3230 480 1742 Weight 66.8 kg 66.8 kg General appearance: PRESENT: no acute distress, cooperative, disheveled Head exam: PRESENT: atraumatic, normocephalic, other - NG tube in place Respiratory exam: PRESENT: clear to auscultation donovan, symmetrical, unlabored. ABSENT: accessory muscle use, crackles, decreased breath sounds, prolonged expiratory phas, rhonchi, tachypnea, wheezes Cardiovascular exam: PRESENT: RRR, +S1, +S2 Pulses: PRESENT: normal carotid pulses Vascular exam: PRESENT: normal capillary refill GI/Abdominal exam: PRESENT: diminished bowel sounds, soft. ABSENT: distended, guarding, rebound, tenderness Extremities exam: ABSENT: clubbing, pedal edema Musculoskeletal exam: PRESENT: normal inspection. ABSENT: deformity Neurological exam: PRESENT: alert, awake, oriented to person, oriented to place, oriented to time, oriented to situation Psychiatric exam: PRESENT: appropriate affect, normal mood Skin exam: PRESENT: dry, warm Results Laboratory Results: 01/21/19 04:47 01/21/19 04:47 Impressions: Abdomen/Pelvis CT 01/19/19 14:44 IMPRESSION: Findings remain consistent with a small bowel obstruction with transition point located about the lower midabdomen. The degree of small bowel wall thickening and mesenteric edema appears increased, raising the possibility of vascular compromise/infarction. No evidence of perforation. Bilateral nonobstructive nephrolithiasis. Cholelithiasis. TECHNICAL DOCUMENTATION: Quality ID # 436: Final reports with documentation of one or more dose reduction techniques (e.g., Automated exposure control, adjustment of the mA and/or kV according to patient size, use of iterative reconstruction technique) copyright 2010 [employer]- All Rights Reserved Acute Abdomen Series 01/20/19 06:00 IMPRESSION: NG tube in the distal esophagus. There are a few mildly prominent air-filled loops of small bowel. Ileus versus partial bowel obstruction. KUB X-Ray 01/21/19 06:00 IMPRESSION: 1. Mildly dilated small bowel loops in the mid aspect of the abdo men. Slight increase in small bowel dilatation since the prior examination dated 01/20/2019. Small Bowel X-Ray 01/21/19 14:08 IMPRESSION: NORMAL SMALL BOWEL EXAM. Assessment and Plan - Diagnosis (1) Small bowel obstruction Is this a current diagnosis for this admission?: Yes Plan: Most likely a partial small bowel obstruction, etiology unknown, managed with conservative measures. NG tube is been discontinued. Small bowel series was normal. Diet is being advanced. If she tolerates a soft diet tomorrow morning, will send her home. - Time Time Spent with patient: 15-24 minutes
[2019-01-23] MEDS: METOCLOPRAMIDE HCL INJ/PF 10 MG/2 ML SDV IV PRN ×3 (02:40→23:37)
[2019-01-23] MEDS: NORMAL SALINE 1000 ML 1,000 ML IV PRN (02:41)
[2019-01-23] MEDS: ONDANSETRON HCL INJ/PF 4 MG/2 ML SDV IV PRN ×4 (03:59→20:34)
[2019-01-23] MEDS: ENOXAPARIN SODIUM INJ 30 MG/0.3 ML DISP.SYRIN SUBCUT SCH (08:43)
[2019-01-23] MEDS ORDERED: LISINOPRIL 10 MG TABLET PO ONE (13:00)
[2019-01-23] MEDS ORDERED: PANTOPRAZOLE SODIUM 40 MG TABLET.DR PO ONE (13:00)
--- NOTE | 2019-01-23 16:58 | PDOC PROGRESS REPORT ---
Subjective Progress Note for:: 01/23/19 Subjective:: No adverse events overnight. She still feels like she cannot hold any food down, but no one has ever seen her actually vomit or any vomit that she says she is produced. When she tried to eat some potatoes earlier, as soon as she tested potatoes to her tongue, she spit it out and said that she was nauseated. Her belly exam today was completely normal. Her blood pressure was elevated, and intermittently has been. Reason For Visit: AGE WITH ILEUS Physical Exam Vital Signs: Temp Pulse Resp BP Pulse Ox 99.2 F 76 17 180/96 H 97 01/23/19 07:58 01/23/19 14:00 01/23/19 07:58 01/23/19 08:11 01/23/19 07:58 Intake & Output 01/22/19 01/23/19 01/24/19 06:59 06:59 06:59 Intake Total 480 3222 1500 Output Total 1000 1200 Balance 480 2222 300 Weight 66.8 kg 66.8 kg General appearance: PRESENT: no acute distress, cooperative, disheveled Head exam: PRESENT: atraumatic, normocephalic, other - NG tube in place Respiratory exam: PRESENT: clear to auscultation donovan, symmetrical, unlabored. ABSENT: accessory muscle use, crackles, decreased breath sounds, prolonged expiratory phas, rhonchi, tachypnea, wheezes Cardiovascular exam: PRESENT: RRR, +S1, +S2 Pulses: PRESENT: normal carotid pulses Vascular exam: PRESENT: normal capillary refill GI/Abdominal exam: PRESENT: Normal bowel sounds, soft. ABSENT: distended, guarding, rebound, tenderness Extremities exam: ABSENT: clubbing, pedal edema Musculoskeletal exam: PRESENT: normal inspection. ABSENT: deformity Neurological exam: PRESENT: alert, awake, oriented to person, oriented to place, oriented to time, oriented to situation Psychiatric exam: PRESENT: Anxious at the prospect of going home Skin exam: PRESENT: dry, warm Results Laboratory Results: 01/21/19 04:47 01/21/19 04:47 Impressions: Abdomen/Pelvis CT 01/19/19 14:44 IMPRESSION: Findings remain consistent with a small bowel obstruction with transition point located about the lower midabdomen. The degree of small bowel wall thickening and mesenteric edema appears increased, raising the possibility of vascular compromise/infarction. No evidence of perforation. Bilateral nonobstructive nephrolithiasis. Cholelithiasis. TECHNICAL DOCUMENTATION: Quality ID # 436: Final reports with documentation of one or more dose reduction techniques (e.g., Automated exposure control, adjustment of the mA and/or kV according to patient size, use of iterative reconstruction technique) copyright 2011 [employer]- All Rights Reserved Acute Abdomen Series 01/20/19 06:00 IMPRESSION: NG tube in the distal esophagus. There are a few mildly prominent air-filled loops of small bowel. Ileus versus partial bowel obstruction. KUB X-Ray 01/21/19 06:00 IMPRESSION: 1. Mildly dilated small bowel loops in the mid aspect of the abdomen. Slight increase in small bowel dilatation since the prior examination dated 01/20/2019. Small Bowel X-Ray 01/21/19 14:08 IMPRESSION: NORMAL SMALL BOWEL EXAM. Assessment and Plan - Diagnosis (1) Small bowel obstruction Is this a current diagnosis for this admission?: Yes Plan: Most likely a partial small bowel obstruction, etiology unknown, managed with conservative measures. NG tube is been discontinued. Small bowel series was normal. Diet is being advanced. I think she is trying to avoid going home for some reason. As long as she is tolerating liquids tomorrow, I am going to discharge her home. - Time Time Spent with patient: 25-34 minutes
[2019-01-23] MEDS: MAG HYDROX/AL HYDROX/SIMETH SUSP 30 ML UDCUP PO PRN ×2 (17:35→23:01)
[2019-01-24] MEDS: PANTOPRAZOLE SODIUM 40 MG TABLET.DR PO SCH (06:01)
[2019-01-24] MEDS: ONDANSETRON HCL INJ/PF 4 MG/2 ML SDV IV PRN ×2 (06:51→14:42)
[2019-01-24] MEDS: ACETAMINOPHEN 650 MG SUPP.RECT PR PRN (08:03)
[2019-01-24] MEDS: ENOXAPARIN SODIUM INJ 30 MG/0.3 ML DISP.SYRIN SUBCUT SCH (09:40)
[2019-01-24] MEDS: LISINOPRIL 10 MG TABLET PO SCH (09:40)
[2019-01-24] MEDS: METOCLOPRAMIDE HCL INJ/PF 10 MG/2 ML SDV IV PRN ×2 (09:48→18:01)
[2019-01-24] MEDS: MAG HYDROX/AL HYDROX/SIMETH SUSP 30 ML UDCUP PO PRN ×2 (11:43→20:47)
--- NOTE | 2019-01-24 15:52 | PDOC PROGRESS REPORT ---
Subjective Progress Note for:: 01/24/19 Subjective:: No adverse events overnight. She is still insisting that she cannot eat or drink anything. She is been able to hold down some liquids but not very much. Her mother is extremely anxious about her going home, almost more anxious than even the patient. Reason For Visit: AGE WITH ILEUS Physical Exam Vital Signs: Temp Pulse Resp BP Pulse Ox 99.1 F 93 16 116/84 95 01/24/19 15:00 01/24/19 15:00 01/24/19 15:00 01/24/19 15:00 01/24/19 15:00 Intake & Output 01/23/19 01/24/19 01/25/19 06:59 06:59 06:59 Intake Total 3222 2347 Output Total 1000 1800 Balance 2222 547 Weight 66.8 kg 68.9 kg General appearance: PRESENT: no acute distress, cooperative, disheveled Head exam: PRESENT: atraumatic, normocephalic, other - NG tube in place Respiratory exam: PRESENT: clear to auscultation donovan, symmetrical, unlabored. ABSENT: accessory muscle use, crackles, decreased breath sounds, prolonged expiratory phas, rhonchi, tachypnea, wheezes Cardiovascular exam: PRESENT: RRR, +S1, +S2 Pulses: PRESENT: normal carotid pulses Vascular exam: PRESENT: normal capillary refill GI/Abdominal exam: PRESENT: Normal bowel sounds, soft. ABSENT: distended, guarding, rebound, tenderness Extremities exam: ABSENT: clubbing, pedal edema Musculoskeletal exam: PRESENT: normal inspection. ABSENT: deformity Neurological exam: PRESENT: alert, awake, oriented to person, oriented to place, oriented to time, oriented to situation Psychiatric exam: PRESENT: Anxious at the prospect of going home Skin exam: PRESENT: dry, warm Results Laboratory Results: 01/21/19 04:47 01/21/19 04:47 Impressions: Abdomen/Pelvis CT 01/19/19 14:44 IMPRESSION: Findings remain consistent with a small bowel obstruction with transition point located about the lower midabdomen. The degree of small bowel wall thickening and mesenteric edema appears increased, raising the possibility of vascular compromise/infarction. No evidence of perforation. Bilateral nonobstructive nephrolithiasis. Cholelithiasis. TECHNICAL DOCUMENTATION: Quality ID # 436: Final reports with documentation of one or more dose reduction techniques (e.g., Automated exposure control, adjustment of the mA and/or kV according to patient size, use of iterative reconstruction technique) copyright 2011 [employer]- All Rights Reserved Acute Abdomen Series 01/20/19 06:00 IMPRESSION: NG tube in the distal esophagus. There are a few mildly prominent air-filled loops of small bowel. Ileus versus partial bowel obstruction. KUB X-Ray 01/21/19 06:00 IMPRESSION: 1. Mildly dilated small bowel loops in the mid aspect of the abdomen. Slight increase in small bowel dilatation since the prior examination dated 01/20/2019. Small Bowel X-Ray 01/21/19 14:08 IMPRESSION: NORMAL SMALL BOWEL EXAM. Assessment and Plan - Diagnosis (1) Small bowel obstruction Is this a current diagnosis for this admission?: Yes Plan: Most likely a partial small bowel obstruction, etiology unknown, managed with conservative measures. NG tube is been discontinued. Small bowel series was normal. Diet is being advanced. I think she is trying to avoid going home for some reason. She still not tolerating enough liquids go home. She did ask if she could have a vanilla milkshake if her sister brought it to her. I told her that it was okay to give it a try. If she is able to drink a whole milk she can keep it down then we can send her home. - Time Time Spent with patient: 15-24 minutes
[2019-01-24] MEDS: ACETAMINOPHEN 325 MG TABLET PO PRN (18:01)
[2019-01-25] MEDS: METOCLOPRAMIDE HCL INJ/PF 10 MG/2 ML SDV IV PRN ×2 (01:50→08:46)
[2019-01-25] MEDS: PANTOPRAZOLE SODIUM 40 MG TABLET.DR PO SCH (05:49)
[2019-01-25] MEDS: ACETAMINOPHEN 325 MG TABLET PO PRN ×2 (08:47→23:48)
[2019-01-25] MEDS: ENOXAPARIN SODIUM INJ 30 MG/0.3 ML DISP.SYRIN SUBCUT SCH (09:44)
[2019-01-25] MEDS: MAG HYDROX/AL HYDROX/SIMETH SUSP 30 ML UDCUP PO PRN ×2 (10:58→16:16)
[2019-01-25] MEDS: LISINOPRIL 10 MG TABLET PO SCH ×2 (11:03→12:10)
--- NOTE | 2019-01-25 16:10 | PDOC PROGRESS REPORT ---
Subjective Progress Note for:: 01/25/19 Subjective:: No adverse events overnight. She says she feels like her stomach is feeling better. She is not as nauseated. Still not taking a lot of p.o. She says she has not had a bowel movement today. Reason For Visit: AGE WITH ILEUS Physical Exam Vital Signs: Temp Pulse Resp BP Pulse Ox 98.3 F 110 H 17 111/56 L 96 01/25/19 11:50 01/25/19 14:00 01/25/19 11:50 01/25/19 11:50 01/25/19 11:50 Intake & Output 01/24/19 01/25/19 01/26/19 06:59 06:59 06:59 Intake Total 2347 1277 Output Total 1800 Balance 547 1277 Weight 68.9 kg 71.2 kg General appearance: PRESENT: no acute distress, cooperative, disheveled Head exam: PRESENT: atraumatic, normocephalic, other - NG tube in place Respiratory exam: PRESENT: clear to auscultation donovan, symmetrical, unlabored. ABSENT: accessory muscle use, crackles, decreased breath sounds, prolonged expiratory phas, rhonchi, tachypnea, wheezes Cardiovascular exam: PRESENT: RRR, +S1, +S2 Pulses: PRESENT: normal carotid pulses Vascular exam: PRESENT: normal capillary refill GI/Abdominal exam: PRESENT: Normal bowel sounds, soft. ABSENT: distended, guarding, rebound, tenderness Extremities exam: ABSENT: clubbing, pedal edema Musculoskeletal exam: PRESENT: normal inspection. ABSENT: deformity Neurological exam: PRESENT: alert, awake, oriented to person, oriented to place, oriented to time, oriented to situation Psychiatric exam: PRESENT: Anxious at the prospect of going home Skin exam: PRESENT: dry, warm Results Laboratory Results: 01/21/19 04:47 01/21/19 04:47 Impressions: Abdomen/Pelvis CT 01/19/19 14:44 IMPRESSION: Findings remain consistent with a small bowel obstruction with transition point located about the lower midabdomen. The degree of small bowel wall thickening and mesenteric edema appears increased, raising the possibility of vascular compromise/infarction. No evidence of perforation. Bilateral nonobstructive nephrolithiasis. Cholelithiasis. TECHNICAL DOCUMENTATION: Quality ID # 436: Final reports with documentation of one or more dose reduction techniques (e.g., Automated exposure control, adjustment of the mA and/or kV according to patient size, use of iterative reconstruction technique) copyright 2011 [email or web address]- All Rights Reserved Acute Abdomen Series 01/20/19 06:00 IMPRESSION: NG tube in the distal esophagus. There are a few mildly prominent air-filled loops of small bowel. Ileus versus partial bowel obstruction. KUB X-Ray 01/21/19 06:00 IMPRESSION: 1. Mildly dilated small bowel loops in the mid aspect of the abdomen. Slight increase in small bowel dilatation since the prior examination dated 01/20/2019. Small Bowel X-Ray 01/21/19 14:08 IMPRESSION: NORMAL SMALL BOWEL EXAM. Assessment and Plan - Diagnosis (1) Small bowel obstruction Is this a current diagnosis for this admission?: Yes Plan: Most likely a partial small bowel obstruction, etiology unknown, managed with conservative measures. NG tube is been discontinued. Small bowel series was normal. Diet is being advanced. I think she is trying to avoid going home for some reason. She still not tolerating enough liquids go home. We will keep assessing her on a day-to-day basis. She says she wants to see a air drill operator. We have added a proton pump inhibitor as well as some Maalox. - Time Time Spent with patient: 15-24 minutes
[2019-01-25] MEDS: METOCLOPRAMIDE HCL 10 MG TABLET PO PRN ×2 (16:16→23:49)
[2019-01-26] MEDS: ACETAMINOPHEN 325 MG TABLET PO PRN (06:17)
[2019-01-26] MEDS: PANTOPRAZOLE SODIUM 40 MG TABLET.DR PO SCH (06:17)
[2019-01-26] MEDS: LISINOPRIL 10 MG TABLET PO SCH (09:09)
[2019-01-26] MEDS: ENOXAPARIN SODIUM INJ 30 MG/0.3 ML DISP.SYRIN SUBCUT SCH (09:18)
[2019-01-26] MEDS: MAG HYDROX/AL HYDROX/SIMETH SUSP 30 ML UDCUP PO PRN (11:02)
[2019-01-26] MEDS ORDERED: TRAMADOL HCL 50 MG TABLET PO PRN (11:30)
[2019-01-26] MEDS ORDERED: METHOTREXATE SODIUM 2.5 MG TABLET PO ONE (15:00)
[2019-01-26] MEDS: TOFACITINIB CITRATE 11 MG PO SCH (15:44)
--- NOTE | 2019-01-26 16:11 | PDOC PROGRESS REPORT ---
Subjective Progress Note for:: 01/26/19 Subjective:: No adverse events overnight. No new complaints. Slept little better last night. Less abdominal pain but she says it still persists. Still having some nausea. States she does not think she is having to take the nausea medication as much but she still is unable to tolerate very much liquids. Reason For Visit: AGE WITH ILEUS Physical Exam Vital Signs: Temp Pulse Resp BP Pulse Ox 98.4 F 98 18 101/70 92 01/26/19 10:00 01/26/19 14:00 01/26/19 10:00 01/26/19 10:00 01/26/19 10:00 Intake & Output 01/25/19 01/26/19 01/27/19 06:59 06:59 06:59 Intake Total 1277 1952 Balance 1277 195 Weight 71.2 kg 69.8 kg General appearance: PRESENT: no acute distress, cooperative, disheveled Head exam: PRESENT: atraumatic, normocephalic, other - NG tube in place Respiratory exam: PRESENT: clear to auscultation donovan, symmetrical, unlabored. ABSENT: accessory muscle use, crackles, decreased breath sounds, prolonged expiratory phas, rhonchi, tachypnea, wheezes Cardiovascular exam: PRESENT: RRR, +S1, +S2 Pulses: PRESENT: normal carotid pulses Vascular exam: PRESENT: normal capillary refill GI/Abdominal exam: PRESENT: Normal bowel sounds, soft. ABSENT: distended, guarding, rebound, tenderness Extremities exam: ABSENT: clubbing, pedal edema Musculoskeletal exam: PRESENT: normal inspection. ABSENT: deformity Neurological exam: PRESENT: alert, awake, oriented to person, oriented to place, oriented to time, oriented to situation Psychiatric exam: PRESENT: Anxious at the prospect of going home Skin exam: PRESENT: dry, warm Results Laboratory Results: 01/21/19 04:47 01/21/19 04:47 Impressions: Abdomen/Pelvis CT 01/19/19 14:44 IMPRESSION: Findings remain consistent with a small bowel obstruction with transition point located about the lower midabdomen. The degree of small bowel wall thickening and mesenteric edema appears increased, raising the possibility of vascular compromise/infarction. No evidence of perforation. Bilateral nonobstructive nephrolithiasis. Cholelithiasis. TECHNICAL DOCUMENTATION: Quality ID # 436: Final reports with documentation of one or more dose reduction techniques (e.g., Automated exposure control, adjustment of the mA and/or kV according to patient size, use of iterative reconstruction technique) copyright 2011 [employer]- All Rights Reserved Acute Abdomen Series 01/20/19 06:00 IMPRESSION: NG tube in the distal esophagus. There are a few mildly prominent air-filled loops of small bowel. Ileus versus partial bowel obstruction. KUB X-Ray 01/21/19 06:00 IMPRESSION: 1. Mildly dilated small bowel loops in the mid aspect of the abdomen. Slight increase in small bowel dilatation since the prior examination dated 01/20/2019. Small Bowel X-Ray 01/21/19 14:08 IMPRESSION: NORMAL SMALL BOWEL EXAM. Assessment and Plan - Diagnosis (1) Small bowel obstruction Is this a current diagnosis for this admission?: Yes Plan: Most likely a partial small bowel obstruction, etiology unknown, managed with conservative measures. NG tube is been discontinued. Small bowel series was normal. Diet is being advanced. She still not tolerating enough liquids go home. We will keep assessing her on a day-to-day basis. She says she wants to see a surgery teacher so a consult was placed for Dr. Traore. We have added a proton pump inhibitor as well as some Maalox. (2) Rheumatoid arthritis Qualifiers: Rheumatoid arthritis location: multiple sites Rheumatoid factor presence: unspecified presence Qualified Code(s): M06.9 - Rheumatoid arthritis, unspecified Is this a current diagnosis for this admission?: Yes Plan: This is a chronic long-standing problem for her. She has not been on her methotrexate or Xeljanz because she has not been able to tolerate p.o. well enough, but she wants to try those medications today. (3) Hypertension Qualifiers: Hypertension type: essential hypertension Qualified Code(s): I10 - Essential (primary) hypertension Is this a current diagnosis for this admission?: Yes Plan: Her blood pressures initially were elevated but for the last couple of days have been lower so we are stopping the lisinopril. - Time Time Spent with patient: 15-24 minutes
[2019-01-26] MEDS ORDERED: (PENDING PHARMACY ID) (Sulindac [Sulindac] 150 MG) PO SCH (22:00)
[2019-01-26] MEDS: SULINDAC 150 MG PO SCH (22:31)
[2019-01-27] MEDS: PANTOPRAZOLE SODIUM 40 MG TABLET.DR PO SCH (05:29)
[2019-01-27] MEDS: MAG HYDROX/AL HYDROX/SIMETH SUSP 30 ML UDCUP PO PRN (07:38)
[2019-01-27] MEDS: CHOLECALCIFEROL (D3) 1,000 UNIT TABLET PO SCH (09:09)
[2019-01-27] MEDS: LORATADINE 10 MG TABLET PO SCH (09:09)
[2019-01-27] MEDS: SULINDAC 150 MG PO SCH ×2 (09:10→21:05)
[2019-01-27] MEDS: ENOXAPARIN SODIUM INJ 30 MG/0.3 ML DISP.SYRIN SUBCUT SCH (09:11)
[2019-01-27] MEDS: FOLIC ACID 1 MG TABLET PO SCH (09:11)
[2019-01-27] MEDS: PREDNISONE 1 MG TABLET PO SCH (09:11)
[2019-01-27] MEDS: TOFACITINIB CITRATE 11 MG PO SCH (09:12)
[2019-01-27] MEDS ORDERED: TOFACITINIB CITRATE 11 MG PO SCH (10:00)
[2019-01-27] MEDS ORDERED: (PENDING PHARMACY ID) (Folic Acid [Folic Acid] 0.8 MG) PO SCH (10:00)
--- NOTE | 2019-01-27 10:45 | PDOC PROGRESS REPORT ---
Subjective Progress Note for:: 01/27/19 Subjective:: 53 year old female with a past medical history of rheumatoid arthritis and dwarfism. The patient presented to the emergency department via EMS with a chief complaint of epigastric pain, sharp and burning intermittent with nausea, vomiting and diarrhea starting last night. Pain does not migrate to the back or flanks. She has no urination. Patient did not have any documented fevers however according to her mother she did have an episode of diaphoresis during he r vomiting. The patient did have a plain CT in the emergency department this was reviewed by the surgeon. At this time it is not felt to be a bowel obstruction. NGT was placed and referral to hospitalist service for admission and management of ileus. 01/26/2019-No adverse events overnight. No new complaints. Slept little better last night. Less abdominal pain but she says it still persists. Still having some nausea. States she does not think she is having to take the nausea medication as much but she still is unable to tolerate very much liquids. 01/27/2019-no acute events in the last 24 hours. Patient is afebrile. She has a few loose bowel movements. Requesting GI consult Dr. Che was notified. He may probably see her today. We do not have any labs for the last several days p jody to do the labs today and tomorrow. If the patient is stable she may go home tomorrow. Able to tolerate regular diet. Reason For Visit: AGE WITH ILEUS Physical Exam Vital Signs: Temp Pulse Resp BP Pulse Ox 98.1 F 83 17 98/60 L 94 01/27/19 08:00 01/27/19 08:00 01/27/19 08:00 01/27/19 08:00 01/27/19 08:00 Intake & Output 01/26/19 01/27/19 01/28/19 06:59 06:59 06:59 Intake Total 1951 796 Balance 1951 796 Weight 69.8 kg 73.1 kg General appearance: PRESENT: no acute distress, obese Head exam: PRESENT: atraumatic Eye exam: PRESENT: PERRLA Mouth exam: PRESENT: moist, tongue midline Neck exam: ABSENT: carotid bruit, JVD, lymphadenopathy, thyromegaly Respiratory exam: PRESENT: clear to auscultation donovan. ABSENT: rales, rhonchi, wheezes Cardiovascular exam: PRESENT: RRR. ABSENT: diastolic murmur, rubs, systolic murmur GI/Abdominal exam: PRESENT: normal bowel sounds, soft. ABSENT: distended, guarding, mass, organolmegaly, rebound, tenderness Extremities exam: PRESENT: full ROM. ABSENT: calf tenderness, clubbing, pedal edema Neurological exam: PRESENT: alert, awake, oriented to person, oriented to place, oriented to time, oriented to situation, CN II-XII grossly intact. ABSENT: motor sensory deficit Psychiatric exam: PRESENT: appropriate affect, normal mood. ABSENT: homicidal ideation, suicidal ideation Results Laboratory Results: 01/21/19 04:47 01/21/19 04:47 Impressions: Abdomen/Pelvis CT 01/19/19 14:44 IMPRESSION: Findings remain consistent with a small bowel obstruction with transition point located about the lower midabdomen. The degree of small bowel wall thickening and mesenteric edema appears increased, raising the possibility of vascular compromise/infarction. No evidence of perforation. Bilateral nonobstructive nephrolithiasis. Cholelithiasis. TECHNICAL DOCUMENTATION: Quality ID # 436: Final reports with documentation of one or more dose reduction techniques (e.g., Automated exposure control, adjustment of the mA and/or kV according to patient size, use of iterative reconstruction technique) copyright 2011 [employer]- All Rights Reserved Acute Abdomen Series 01/20/19 06:00 IMPRESSION: NG tube in the distal esophagus. There are a few mildly prominent air-filled loops of small bowel. Ileus versus partial bowel obstruction. KUB X-Ray 01/21/19 06:00 IMPRESSION: 1. Mildly dilated small bowel loops in the mid aspect of the abdomen. Slight increase in small bowel dilatation since the prior examination dated 01/20/2019. Small Bowel X-Ray 01/21/19 14:08 IMPRESSION: NORMAL SMALL BOWEL EXAM. Assessment and Plan - Diagnosis (1) Small bowel obstruction Is this a current diagnosis for this admission?: Yes Plan: Most likely a partial small bowel obstruction, etiology unknown, managed with conservative measures. NG tube is been discontinued. Small bowel series was normal. Diet is being advanced. She still not tolerating enough liquids go ho me. We will keep assessing her on a day-to-day basis. She says she wants to see a validation architect so a consult was placed for Dr. Traore. We have added a proton pump inhibitor as well as some Maalox. 01/[id number]-irid-old female admitted for ileus. Initially an NG tube. Surgical consult was done. As per the patient request a GI consult was requested. Patient is off the NG tube able to tolerate the regular diet. Patient have few small bowel movements. No complaints. Plan to repeat the KUB today. (2) Rheumatoid arthritis Qualifiers: Rheumatoid arthritis location: multiple sites Rheumatoid factor presence: unspecified presence Qualified Code(s): M06.9 - Rheumatoid arthritis, unspecif ied Is this a current diagnosis for this admission?: Yes Plan: This is a chronic long-standing problem for her. She has not been on her methot rexate or Xeljanz because she has not been able to tolerate p.o. well enough, but she wants to try those medications today. 01/27/2019-patient has history of rheumatoid arthritis. Started on methotrexate yesterday. No concerns from the patient. Plan is to continue the present management. (3) Hypertension Qualifiers: Hypertension type: essential hypertension Qualified Code(s): I10 - Essential (primary) hypertension Is this a current diagnosis for this admission?: Yes Plan: Her blood pressures initially were elevated but for the last couple of days have been lower so we are stopping the lisinopril. 01/27/2019-patient came in with high blood pressures initially today's blood pressure is 98/60. Blood pressure medications are on hold. Plan is to closely monitor the blood pressures. Fall precautions are requested. (4) Obesity (BMI 30.0-34.9) Is this a current diagnosis for this admission?: No Plan: 01/27/2019-patient's BMI is 35. Diet exercise lifestyle modifications discussed with the patient. Dietary consult was requested. - Time Time Spent with patient: 15-24 minutes Medications reviewed and adjusted accordingly: Yes Anticipated discharge: Home
[2019-01-27] MEDS ORDERED: DEXTROSE 40% GEL 15 GM TUBE PO PRN ×2 (11:00)
--- NOTE | 2019-01-27 12:09 | RADIOLOGY REPORT (SQ) ---
EXAM DESCRIPTION: KUB/ABDOMEN (SINGLE VIEW) COMPLETED DATE/TIME: 01/27/2019 11:47 am REASON FOR STUDY: ileus COMPARISON: 01/21/2019. NUMBER OF VIEWS: One view. TECHNIQUE: Supine radiographic image of the abdomen acquired. LIMITATIONS: None. FINDINGS: BOWEL GAS PATTERN: Normal bowel gas pattern. No dilated loops. CALCIFICATIONS: No suspicious calcifications. SOFT TISSUES: No gross mass or suggestion of organomegaly. HARDWARE: Hardware in both hips. BONES: No acute fracture. No worrisome bone lesions. OTHER: No other significant finding. IMPRESSION: NO RADIOGRAPHIC EVIDENCE FOR ACUTE ABDOMINAL DISEASE. NO SIGNIFICANT BOWEL DILATION. TECHNICAL DOCUMENTATION: JOB ID: [id number] [email or web address]- All Rights Reserved Reading location - IP/workstation name: [email or web address]
[2019-01-27 12:15] LABS: ABSOLUTE EOSINOPHILS # (AUTO) 0.2 10^3/uL (0.0-0.6); ABSOLUTE LYMPHOCYTES (AUTO) 2.2 10^3/uL (0.5-4.7); ABSOLUTE MONOCYTES (AUTO) 0.7 10^3/uL (0.1-1.4); ABSOLUTE NEUT (AUTO) 4.8 10^3/uL (1.7-8.2); BASOPHILS % (AUTO) 0.5 % (0-2); EOSINOPHILS % (AUTO) 2.2 % (0-6); HEMATOCRIT 38.7 % (36.0-47.0); HEMOGLOBIN 13.5 g/dL (12.0-15.5); LYMPHOCYTES % (AUTO) 27.4 % (13-45); MEAN CORPUSCULAR HEMOGLOBIN 33.1 pg (27.0-33.4); MEAN CORPUSCULAR VOLUME 95 fl (80-97); MONOCYTES % (AUTO) 8.7 % (3-13); PLATELET COUNT 260 10^3/uL (150-450); RED BLOOD COUNT 4.08 10^6/uL (3.72-5.28); RED CELL DISTRIBUTION WIDTH 14.8 % (11.5-14.0); SEGMENTED NEUTROPHILS % (AUTO) 61.2 % (42-78); TOTAL CELLS COUNTED % (AUTO) 100 %; WHITE BLOOD COUNT 7.9 10^3/uL (4.0-10.5)
[2019-01-27 12:32] LABS: ALANINE AMINOTRANSFERASE 53 U/L (9-52); ALBUMIN 3.6 g/dL (3.5-5.0); ALKALINE PHOSPHATASE 91 U/L (38-126); ANION GAP 7 (5-19); ASPARTATE AMINO TRANSFERASE 71 U/L (14-36); BILIRUBIN,DIRECT 0.3 mg/dL (0.0-0.4); BILIRUBIN,TOTAL 0.6 mg/dL (0.2-1.3); BLOOD UREA NITROGEN 21 mg/dL (7-20); CALCIUM 9.7 mg/dL (8.4-10.2); CARBON DIOXIDE 33 mmol/L (22-30); CHLORIDE 98 mmol/L (98-107); GLUCOSE 98 mg/dL (75-110); POTASSIUM 3.9 mmol/L (3.6-5.0); SODIUM 138.3 mmol/L (137-145); TOTAL PROTEIN 6.3 g/dL (6.3-8.2)
--- NOTE | 2019-01-27 14:27 | PDOC CONSULTATION ---
Consultation Consult Date: 01/27/19 Attending physician:: BRIA AGUDELO Consult reason:: nausea, epigastric pain History of Present Illness Admission Date/PCP: 01/19/19 15:15 SHANI HALL MD History of Present Illness: TRISTA NICOLE is a 53 year old female I have been asked to see this patient has been in the hospital for about1 week admitted for an ileus which has recently improved she had an ileus however her initial problem was epigastric pain with nausea and vomiting patient is on Xeljanz for arthritis patient now has early satiety will need EGD to rule out for peptic ulcer disease Past Medical History Neurological Medical History: Reports: Other - Arnold Chiari Syndrome Renal/ Medical History: Reports: Nephrolithiasis Musculoskeltal Medical History: Reports: Arthritis - RA, Other - Dwarfism Social History Lives with: Family Smoking Status: Never Smoker Frequency of Alcohol Use: Rare Hx Recreational Drug Use: No Drugs: None Hx Prescription Drug Abuse: No - Advance Directive Resuscitation Status: Full Code Family History Family History: Reviewed & Not Pertinent Parental Family History Reviewed: Yes Children Family History Reviewed: Unknown Sibling(s) Family History Reviewed.: Unknown Medication/Allergy Home Medications: Cholecalciferol (Vitamin D3) [Vitamin D3 1000 Unit Tablet] 1,000 unit PO DAILY 01/19/19 Folic Acid 0.8 mg PO DAILY 01/19/19 Loratadine [Claritin 10 mg Tablet] 10 mg PO DAILY 01/19/19 Methotrexate Sodium [Rheumatrex 2.5 mg Tablet] 20 mg PO MO@10 01/19/19 Prednisone [Deltasone 1 mg Tablet] 1 mg PO DAILY 01/19/19 Sulindac 150 mg PO Q12HP PRN 01/19/19 Tofacitinib Citrate [Xeljanz Xr] 11 mg PO DAILY 01/19/19 Tramadol HCl [Ultram 50 mg Tablet] 50 mg PO Q12HP PRN 01/19/19 Allergies/Adverse Reactions: ciprofloxacin [From Cipro] Allergy (Verified 01/19/19 10:20) codeine Allergy (Verified 01/19/19 10:20) ketorolac [From Toradol] Allergy (Verified 01/19/19 10:20) morphine Allergy (Verified 01/19/19 10:20) nitrofurantoin [From Macrobid] Allergy (Verified 01/19/19 10:20) oxycodone [From Percocet] Allergy (Verified 01/19/19 10:20) Penicillins Allergy (Verified 01/19/19 10:20) sulfamethoxazole [From Bactrim] Allergy (Verified 01/19/19 10:20) trimethoprim [From Bactrim] Allergy (Verified 01/19/19 10:20) imepenum Allergy (Uncoded 01/19/19 10:20) Review of Systems Constitutional: ABSENT: fever(s), headache(s), night sweats Eyes: ABSENT: visual disturbances Ears: ABSENT: hearing changes Nose, Mouth, and Throat: ABSENT: mouth pain, sore throat Cardiovascular: ABSENT: edema, orthropnea Respiratory: ABSENT: dyspnea, hemoptysis Gastrointestinal: PRESENT: heartburn, nausea, vomiting. ABSENT: hematemesis, hematochezia, melena Genitourinary: ABSENT: dysuria, hematuria Musculoskeletal: ABSENT: deformity, joint swelling Integumentary: ABSENT: lesions, pruritus, rash Neurological: PRESENT: tremor(s). ABSENT: syncope, tingling, vertigo Endocrine: PRESENT: polydipsia, polyphagia, polyuria Hematologic/Lymphatic: ABSENT: easy bruising Physical Exam Vital Signs: Temp Pulse Resp BP Pulse Ox 98.1 F 83 17 98/60 L 94 01/27/19 08:00 01/27/19 08:00 01/27/19 08:00 01/27/19 08:00 01/27/19 08:00 Intake & Output 01/26/19 01/27/19 01/28/19 06:59 06:59 06:59 Intake Total 1951 796 Balance 1951 796 Weight 69.8 kg 73.1 kg General appearance: PRESENT: no acute distress, well-developed, well-nourished Head exam: PRESENT: atraumatic, normocephalic Eye exam: PRESENT: EOMI, PERRLA. ABSENT: scleral icterus Mouth exam: PRESENT: moist, neck supple Throat exam: ABSENT: tonsillar exudate, tonsillogmegaly Neck exam: ABSENT: meningismus, tenderness, thyromegaly Respiratory exam: PRESENT: symmetrical, unlabored. ABSENT: tachypnea, wheezes Cardiovascular exam: PRESENT: RRR, +S1, +S2 GI/Abdominal exam: PRESENT: soft. ABSENT: rebound, rigid, tenderness Extremities exam: ABSENT: joint swelling, pedal edema Neurological exam: PRESENT: oriented to time, oriented to situation, CN II-XII grossly intact Focused psych exam: ABSENT: restlessness Skin exam: PRESENT: normal color. ABSENT: mottled, pallor, urticaria, vesicles Results Laboratory Results: 01/27/19 11:57 01/27/19 11:57 01/27/19 01/27/19 11:57 11:57 WBC 7.9 RBC 4.08 Hgb 13.5 Hct 38.7 MCV 95 MCH 33.1 MCHC 35.0 RDW 14.8 H Plt Count 260 Seg Neutrophils % 61.2 Lymphocytes % 27.4 Monocytes % 8.7 Eosinophils % 2.2 Basophils % 0.5 Absolute Neutrophils 4.8 Absolute Lymphocytes 2.2 Absolute Monocytes 0.7 Absolute Eosinophils 0.2 Absolute Basophils 0.0 Sodium 138.3 Potassium 3.9 Chloride 98 Carbon Dioxide 33 H Anion Gap 7 BUN 21 H Creatinine 0.68 Est GFR ( Amer) > 60 Est GFR (Non-Af Amer) > 60 Glucose 98 Calcium 9.7 Magnesium 2.1 Total Bilirubin 0.6 AST 71 H ALT 53 H Alkaline Phosphatase 91 Total Protein 6.3 Albumin 3.6 Impressions: Abdomen/Pelvis CT 01/19/19 14:44 IMPRESSION: Findings remain consistent with a small bowel obstruction with transition point located about the lower midabdomen. The degree of small bowel wall thickening and mesenteric edema appears increased, raising the possibility of vascular compromise/infarction. No evidence of perforation. Bilateral nonobstructive nephrolithiasis. Cholelithiasis. TECHNICAL DOCUMENTATION: Quality ID # 436: Final reports with documentation of one or more dose reduction techniques (e.g., Automated exposure control, adjustment of the mA and/or kV according to patient size, use of iterative reconstruction technique) copyright 2011 [employer]- All Rights Reserved Acute Abdomen Series 01/20/19 06:00 IMPRESSION: NG tube in the distal esophagus. There are a few mildly prominent air-filled loops of small bowel. Ileus versus partial bowel obstruction. Small Bowel X-Ray 01/21/19 14:08 IMPRESSION: NORMAL SMALL BOWEL EXAM. KUB X-Ray 01/27/19 00:00 IMPRESSION: NO RADIOGRAPHIC EVIDENCE FOR ACUTE ABDOMINAL DISEASE. NO SIGNIFICANT BOWEL DILATION. Assessment & Plan - Diagnosis (1) Abdominal pain Plan: she initially presented with epigastric abdominal pain she had an NG tube and now has been discontinued will need EGD to rule out for peptic ulcer disease Risks, benefits and alternatives are discussed with the patient in detail further recommendations to follow (2) Nausea & vomiting Qualifiers: Vomiting type: bilious vomiting Qualified Code(s): R11.14 - Bilious vomiting Is this a current diagnosis for this admission?: Yes Plan: patient may have an ulcer and now has early satiety she is agreeable to proceed further recommendations to follow - Time Time Spent: 50 to 70 Minutes
[2019-01-28] MEDS: PANTOPRAZOLE SODIUM 40 MG TABLET.DR PO SCH (05:20)
[2019-01-28] MEDS ORDERED: NALOXONE HCL INJ/PF 0.4 MG/1 ML SDV ONE (07:30)
[2019-01-28] MEDS ORDERED: ONDANSETRON HCL INJ/PF 4 MG/2 ML SDV ONE (07:30)
[2019-01-28] MEDS ORDERED: DIPHENHYDRAMINE HCL 50 MG/ML VIAL ONE (07:30)
[2019-01-28] MEDS ORDERED: FLUMAZENIL INJ 0.5 MG/5 ML VIAL ONE (07:30)
[2019-01-28] MEDS ORDERED: GLUCAGON,HUMAN RECOMB 1 MG INJ ONE (07:31)
[2019-01-28] MEDS ORDERED: EPINEPHRINE INJ 1 MG/10 ML DISP.SYRIN ONE (07:31)
[2019-01-28] MEDS: MIDAZOLAM 2 MG/2 ML INJ ONE ×2 (08:14→08:18)
[2019-01-28] MEDS: FENTANYL CITRATE INJ/PF 100 MCG/2 ML AMPUL ONE ×2 (08:16→08:20)
--- NOTE | 2019-01-28 08:32 | Operative Report ---
Operative Report DATE OF SURGERY: 01/28/19 Operative Report: The risks benefits and alternatives of the procedure explained to the patient in detail and informed consent is obtained.A GIF Olympus video scope was inserted into the patient's mouth and hypopharynx, the esophagus is identified intubated and insufflated, the scope was then advanced through the esophagus stomach and duodenum, retroflexion maneuver is done, the esophagus stomach and first and second portions of the duodenum examined. PREOPERATIVE DIAGNOSIS: Early satiety, nausea vomiting, epigastric pain POSTOPERATIVE DIAGNOSIS: Gastritis status post biopsy rule out Helicobacter pylori. Several gastric erosions noted OPERATION: EGD with biopsy SURGEON: BRIA AGUDELO ANESTHESIA: Moderate Sedation - 3 mg of Versed, 50 mcg of fentanyl. Conscious sedation monitoring time 30 minutes. TISSUE REMOVED OR ALTERED: As noted above. COMPLICATIONS: None. ESTIMATED BLOOD LOSS: None. INTRAOPERATIVE FINDINGS: As noted above. PROCEDURE: Patient tolerated the procedure well. No immediate postprocedure complications are noted. Patient discharged back to her room in good condition. Discharge activity: Regular. Discharge diet: Regular. Follow-up: Pathology. Should be able to be discharged and follow-up as outpatient as needed.
[2019-01-28] MEDS: CHOLECALCIFEROL (D3) 1,000 UNIT TABLET PO SCH (09:45)
[2019-01-28] MEDS: LORATADINE 10 MG TABLET PO SCH (09:45)
[2019-01-28] MEDS: PREDNISONE 1 MG TABLET PO SCH (09:45)
[2019-01-28] MEDS: ENOXAPARIN SODIUM INJ 30 MG/0.3 ML DISP.SYRIN SUBCUT SCH (09:45)
[2019-01-28] MEDS: FOLIC ACID 1 MG TABLET PO SCH (09:45)
[2019-01-28] MEDS: TOFACITINIB CITRATE 11 MG PO SCH (09:45)
[2019-01-28] MEDS: SULINDAC 150 MG PO SCH (09:46)
[2019-01-28 10:46] VITALS: BP 94/59
--- NOTE | 2019-01-28 13:13 | PDOC DISCHARGE SUMMARY ---
General - Admit/Disc Date/PCP Admission Date/Primary Care Provider: 01/19/19 15:15 SHANI HALL MD Discharge Date: 01/28/19 - Discharge Diagnosis (1) Small bowel obstruction Is this a current diagnosis for this admission?: Yes Summary: Most likely a partial small bowel obstruction, etiology unknown, managed with conservative measures. NG tube is been discontinued. Small bowel series was normal. Diet is being advanced. She still not tolerating enough liquids go home. We will keep assessing her on a day-to-day basis. She says she wants to see a otr driver so a consult was placed for Dr. Traore. We have added a proton pump inhibitor as well as some Maalox. 01/[id number]-old female admitted for ileus. Initially an NG tube. Surgical consult was done. As per the patient request a GI consult was requested. Patient is off the NG tube able to tolerate the regular diet. Patient have few small bowel movements. No complaints. Plan to repeat the KUB today. 01/[id number]-aiuv-old female admitted with ileus. Initially an NG tube, surgical consult was done conservative management was recommended. NG tube was removed later on and patient was able to have a bowel movements. She also went for EGD and colonoscopy preliminary report indicates no abnormalities are detected. Patient is advised to follow-up with Dr. Traore as an outpatient for biopsy reports. (2) Rheumatoid arthritis Is this a current diagnosis for this admission?: Yes Summary: This is a chronic long-standing problem for her. She has not been on her methotrexate or Xeljanz because she has not been able to tolerate p.o. well enough, but she wants to try those medications today. 01/27/2019-patient has history of rheumatoid arthritis. Started on methotrexate yesterday. No concerns from the patient. Plan is to continue the present management. 2018-patient has history of rheumatoid arthritis. She was on methotrexate and Xeljanz at home and patient was advised to restart those medications. (3) Hypertension Is this a current diagnosis for this admission?: Yes Summary: Her blood pressures initially were elevated but for the last couple of days have been lower so we are stopping the lisinopril. 01/27/2019-patient came in with high blood pressures initially today's blood pressure is 98/60. Blood pressure medications are on hold. Plan is to closely monitor the blood pressures. Fall precautions are requested. 01/28/2019-patient has history of hypertension blood pressure here in the hospital 112/75 today. With pulse rate of 89. Advised to continue to hold blood pressure medications until she sees her primary care physician. (4) Obesity (BMI 30.0-34.9) Is this a current diagnosis for this admission?: No - Additional Information Resuscitation Status: Full Code Discharge Diet: As Tolerated Discharge Activity: Activity As Tolerated Prescriptions: Mag Hydrox/Al Hydrox/Simeth [Maalox Plus Susp 30 Udcup] 30 ml PO Q4HP PRN #2 bottle PRN Reason: Home Medications: Cholecalciferol (Vitamin D3) [Vitamin D3 1000 Unit Tablet] 1,000 unit PO DAILY 01/19/19 Folic Acid 0.8 mg PO DAILY 01/19/19 Loratadine [Claritin 10 mg Tablet] 10 mg PO DAILY 01/19/19 Methotrexate Sodium [Rheumatrex 2.5 mg Tablet] 20 mg PO MO@10 01/19/19 Prednisone [Deltasone 1 mg Tablet] 1 mg PO DAILY 01/19/19 Tofacitinib Citrate [Xeljanz Xr] 11 mg PO DAILY 01/19/19 Tramadol HCl [Ultram 50 mg Tablet] 50 mg PO Q12HP PRN 01/19/19 Mag Hydrox/Al Hydrox/Simeth [Maalox Plus Susp 30 Udcup] 30 ml PO Q4HP PRN #2 bottle 01/28/19 History of Present Illness History of Present Illness: TRISTA NICOLE is a 53 year old female 53 year old female with a past medical history of rheumatoid arthritis and dwarfism. The patient presented to the emergency department via EMS with a chief complaint of epigastric pain, sharp and burning intermittent with nausea, vomiting and diarrhea starting last night. Pain does not migrate to the back or flanks. She has no urination. Patient did not have any documented fevers howev er according to her mother she did have an episode of diaphoresis during her vomiting. The patient did have a plain CT in the emergency department this was reviewed by the surgeon. At this time it is not felt to be a bowel obstruction. NGT was placed and referral to hospitalist service for admission and management of ileus. Hospital Course Hospital Course: 53 year old female with a past medical history of rheumatoid arthritis and dwarfism. The patient presented to the emergency department via EMS with a chief complaint of epigastric pain, sharp and burning intermittent with nausea, vomiting and diarrhea starting last night. Pain does not migrate to the back or flanks. She has no urination. Patient did not have any documented fevers however according to her mother she did have an episode of diaphoresis during her vomiting. The patient did have a plain CT in the emergency department this was reviewed by the surgeon. At this time it is not felt to be a bowel obstruction. NGT was placed and referral to hospitalist service for admission a nd management of ileus. 01/26/2019-No adverse events overnight. No new complaints. Slept little better last night. Less abdominal pain but she says it still persists. Still having some nausea. States she does not think she is having to take the nausea medication as much but she still is unable to tolerate very much liquids. 01/27/2019-no acute events in the last 24 hours. Patient is afebrile. She has a few loose bowel movements. Requesting GI consult Dr. Che was notified. He may probably see her today. We do not have any labs for the last several days plan to do the labs today and tomorrow. If the patient is stable she may go home tomorrow. Able to tolerate regular diet. 01/28/2019-patient has EGD and colonoscopy done today pulmonary report indicates no acute pathology. Patient is walking around in the hallway. Agreed to go home today. I strongly advised her to follow-up with Dr. Traore as an outpatient for further management. Physical Exam Vital Signs: Temp Pulse Resp BP Pulse Ox 98.5 F 89 16 94/59 L 97 01/28/19 10:44 01/28/19 10:44 01/28/19 10:44 01/28/19 10:44 01/28/19 10:44 Intake & Output 01/27/19 01/28/19 01/29/19 06:59 06:59 06:59 Intake Total 796 803 400 Balance 796 803 400 Weight 73.1 kg 73.1 kg General appearance: PRESENT: no acute distress, obese Head exam: PRESENT: atraumatic Eye exam: PRESENT: PERRLA Mouth exam: PRESENT: moist, tongue midline Neck exam: ABSENT: carotid bruit, JVD, lymphadenopathy, thyromegaly Respiratory exam: PRESENT: clear to auscultation donovan. ABSENT: rales, rhonchi, w heezes Cardiovascular exam: PRESENT: RRR. ABSENT: diastolic murmur, rubs, systolic murmur GI/Abdominal exam: PRESENT: normal bowel sounds, soft. ABSENT: distended, guarding, mass, organolmegaly, rebound, tenderness Extremities exam: PRESENT: full ROM. ABSENT: calf tenderness, clubbing, pedal edema Neurological exam: PRESENT: alert, awake, oriented to person, oriented to place, oriented to time, oriented to situation, CN II-XII grossly intact. ABSENT: motor sensory deficit Psychiatric exam: PRESENT: appropriate affect, normal mood. ABSENT: homicidal ideation, suicidal ideation Results Laboratory Results: 01/27/19 11:57 01/27/19 11:57 Impressions: Abdomen/Pelvis CT 01/19/19 14:44 IMPRESSION: Findings remain consistent with a small bowel obstruction with transition point located about the lower midabdomen. The degree of small bowel wall thickening and mesenteric edema appears increased, raising the possibility of vascular compromise/infarction. No evidence of perforation. Bilateral nonobstructive nephrolithiasis. Cholelithiasis. TECHNICAL DOCUMENTATION: Quality ID # 436: Final reports with documentation of one or more dose reduction techniques (e.g., Automated exposure control, adjustment of the mA and/or kV according to patient size, use of iterative reconstruction technique) copyright 2011 [employer]- All Rights Reserved Acute Abdomen Series 01/20/19 06:00 IMPRESSION: NG tube in the distal esophagus. There are a few mildly prominent air-filled loops of small bowel. Ileus versus partial bowel obstruction. Small Bowel X-Ray 01/21/19 14:08 IMPRESSION: NORMAL SMALL BOWEL EXAM. KUB X-Ray 01/27/19 00:00 IMPRESSION: NO RADIOGRAPHIC EVIDENCE FOR ACUTE ABDOMINAL DISEASE. NO SIGNIFICANT BOWEL DILATION. Qualifiers - * PATIENT BEING DISCHARGED WITH ANY OF THE FOLLOWING DIAGNOSIS: No VTE patient discharged on overlapping Therapy?: No Plan Discharge Plan: Patient is discharged home today. Time Spent: Less than 30 Minutes
[2019-02-02] MEDS ORDERED: METHOTREXATE SODIUM 2.5 MG TABLET PO SCH (10:00)
== END 2019-01-28 11:59 | disposition home or self-care (01) | DRG 390 ==
LOC: ER 10:16 → EH 15:15 → 4W 20:19
PROVIDERS: ADMIT Family Medicine; ATTEND Family Medicine
PROC: 0D9670Z Drainage of Stomach with Drainage Device, Via Natural or Artificial Opening (ICD-10-PCS; 2019-01-19)
PROC: 0DB78ZX Excision of Stomach, Pylorus, Via Natural or Artificial Opening Endoscopic, Diagnostic (ICD-10-PCS; principal; 2019-01-28 08:30)
DX: K56.690 Other partial intestinal obstruction (principal); K52.9 Noninfective gastroenteritis and colitis, unspecified; M08.00 Unspecified juvenile rheumatoid arthritis of unspecified site; I10 Essential (primary) hypertension; E66.9 Obesity, unspecified; Q07.00 Arnold-Chiari syndrome without spina bifida or hydrocephalus; Z88.6 Allergy status to analgesic agent; Z88.0 Allergy status to penicillin; Z88.2 Allergy status to sulfonamides; Z79.899 Other long term (current) drug therapy; Z88.1 Allergy status to other antibiotic agents; Z79.52 Long term (current) use of systemic steroids
CPT/HCPCS: 36415; 43239; 74018; 74022; 74176; 74250; 80048; 80053; 81001; 83690; 83735; 84703; 85025; 88305; 88342; 96361; 96374; 96375; 96376; 99285; J0171; J1170; J1200; J1610; J1650; J2250; J2310; J2405; J2765; J3010; J3480; J3490; J7030; J7512; J8610; S0164

== ENCOUNTER 2019-01-31 13:32 | Emergency (ER) | payer MEDICARE, MEDICAID ==
--- NOTE | 2019-01-31 14:06 | ER Document Report ---
ED Medical Screen (RME) - General Chief Complaint: Abdominal Pain Stated Complaint: ABDOMINAL PAIN Time Seen by Provider: 01/31/19 13:56 Primary Care Provider: SHANI HALL MD [Primary Care Provider] - Follow up as needed Mode of Arrival: Medic Information source: Patient Notes: 53-year-old female presented to ED for complaint of severe right lower quadrant abdominal pain this afternoon. She states she went to the bathroom got a shower when she got out of the shower and put a towel around her she had severe pain which was so bad that she had to sit on the toilet and grab her abdomen. She states she was also very nauseated and felt hot. She states EMS gave her nausea medicine and she does not have any pain or nausea at this time. She states she was recently in the hospital diagnosed with a ileus. She states the doctor told her that sometimes your belly just goes to sleep and they have to give it time to wake up. She does have severe arthritis and did not take her arthritis medicine while in the hospital but has started back on that. She states her arthritis is to the point that she has had bilateral total hip and knee replacements. She is also had kidney stones in the past. She is a former smoker but does not smoke at this time. She states she drinks occasionally maybe once a month or less. She lives with her family. Patient is alert oriented respirations regular and unlabored at this time. Bowel sounds are present and she does not have any tenderness anywhere at this point. I have greeted and performed a rapid initial assessment of this patient. A comprehensive ED assessment and evaluation of the patient, analysis of test results and completion of medical decision making process will be conducted by an additional ED providers. TRAVEL OUTSIDE OF THE [place] IN LAST 30 DAYS: No - Related Data Allergies/Adverse Reactions: ciprofloxacin [From Cipro] Allergy (Verified 01/31/19 13:35) codeine Allergy (Verified 01/31/19 13:35) ketorolac [From Toradol] Allergy (Verified 01/31/19 13:35) morphine Allergy (Verified 01/31/19 13:35) nitrofurantoin [From Macrobid] Allergy (Verified 01/31/19 13:35) oxycodone [From Percocet] Allergy (Verified 01/31/19 13:35) Penicillins Allergy (Verified 01/31/19 13:35) sulfamethoxazole [From Bactrim] Allergy (Verified 01/31/19 13:35) trimethoprim [From Bactrim] Allergy (Verified 01/31/19 13:35) imepenum Allergy (Uncoded 01/31/19 13:35) Past Medical History - Social History Frequency of alcohol use: None Drug Abuse: None Neurological Medical History: Denies: Hx Seizures Renal/ Medical History: Denies: Hx Peritoneal Dialysis Musculoskeltal Medical History: Reports Hx Arthritis - RA Past Surgical History: Denies: Hx Hysterectomy - Immunizations Hx Diphtheria, Pertussis, Tetanus Vaccination: No - pt denied wanting the vaccine Physical Exam - Vital signs Vitals: Temp Pulse Resp BP Pulse Ox 98.3 F 66 16 142/74 H 97 01/31/19 13:44 01/31/19 13:44 01/31/19 13:44 01/31/19 13:44 01/31/19 13:44 Course - Vital Signs Vital signs: Temp Pulse Resp BP Pulse Ox 98.3 F 66 16 142/74 H 97 01/31/19 13:44 01/31/19 13:44 01/31/19 13:44 01/31/19 13:44 01/31/19 13:44 Doctor's Discharge - Discharge Referrals: SHANI HALL MD [Primary Care Provider] - Follow up as needed
[2019-01-31 14:40] LABS: ABSOLUTE BASOPHILS # (AUTO) 0.1 10^3/uL (0.0-0.2); ABSOLUTE EOSINOPHILS # (AUTO) 0.2 10^3/uL (0.0-0.6); ABSOLUTE LYMPHOCYTES (AUTO) 1.6 10^3/uL (0.5-4.7); ABSOLUTE MONOCYTES (AUTO) 0.5 10^3/uL (0.1-1.4); ABSOLUTE NEUT (AUTO) 8.6 10^3/uL (1.7-8.2); BASOPHILS % (AUTO) 0.5 % (0-2); EOSINOPHILS % (AUTO) 1.9 % (0-6); HEMATOCRIT 41.2 % (36.0-47.0); HEMOGLOBIN 14.3 g/dL (12.0-15.5); LYMPHOCYTES % (AUTO) 14.5 % (13-45); MEAN CORPUSCULAR HEMOGLOBIN 33.4 pg (27.0-33.4); MEAN CORPUSCULAR HGB CONC 34.8 g/dL (32.0-36.0); MEAN CORPUSCULAR VOLUME 96 fl (80-97); MONOCYTES % (AUTO) 4.3 % (3-13); PLATELET COUNT 287 10^3/uL (150-450); RED BLOOD COUNT 4.29 10^6/uL (3.72-5.28); RED CELL DISTRIBUTION WIDTH 14.1 % (11.5-14.0); SEGMENTED NEUTROPHILS % (AUTO) 78.8 % (42-78); TOTAL CELLS COUNTED % (AUTO) 100 %; WHITE BLOOD COUNT 10.9 10^3/uL (4.0-10.5)
[2019-01-31 15:41] LABS: APPEARANCE,URINE CLEAR; BILIRUBIN,URINE NEGATIVE (NEGATIVE); COLOR,URINE YELLOW; GLUCOSE, URINE NEGATIVE (NEGATIVE); KETONES,URINE NEGATIVE (NEGATIVE); LEUKOCYTE ESTERASE,URINE NEGATIVE (NEGATIVE); NITRITE,URINE NEGATIVE (NEGATIVE); PROTEIN,URINE NEGATIVE (NEGATIVE); URINE SPECIFIC GRAVITY 1.004; UROBILINOGEN,URINE NEGATIVE mg/dL (<2.0)
[2019-01-31 16:50] LABS: ALANINE AMINOTRANSFERASE 38 U/L (9-52); ALBUMIN 4.3 g/dL (3.5-5.0); ALKALINE PHOSPHATASE 138 U/L (38-126); ANION GAP 8 (5-19); ASPARTATE AMINO TRANSFERASE 35 U/L (14-36); BILIRUBIN,DIRECT 0.3 mg/dL (0.0-0.4); BILIRUBIN,TOTAL 0.6 mg/dL (0.2-1.3); BLOOD UREA NITROGEN 17 mg/dL (7-20); CALCIUM 10.5 mg/dL (8.4-10.2); CARBON DIOXIDE 25 mmol/L (22-30); CHLORIDE 106 mmol/L (98-107); GLUCOSE 92 mg/dL (75-110); LIPASE 335.4 U/L (23-300); POTASSIUM 4.4 mmol/L (3.6-5.0); SODIUM 139.3 mmol/L (137-145); TOTAL PROTEIN 7.8 g/dL (6.3-8.2)
--- NOTE | 2019-01-31 17:12 | RADIOLOGY REPORT (SQ) ---
EXAM DESCRIPTION: ACUTE ABDOMEN SERIES COMPLETED DATE/TIME: 01/31/2019 5:02 pm REASON FOR STUDY: abd pain COMPARISON: 01/27/2019 NUMBER OF VIEWS: Three views. TECHNIQUE: Frontal chest, supine abdomen and upright/decubitus abdomen radiographic images acquired. LIMITATIONS: None. FINDINGS: CHEST: Lungs clear of infiltrates. FREE AIR: None. No abnormal gas collections. BOWEL GAS PATTERN: Nonobstructive pattern. No dilated loops or air fluid levels. CALCIFICATIONS: Extensive bilateral nephrolithiasis. HARDWARE: Hip replacement on the right. Bilateral hip replacements. SOFT TISSUES: No gross mass or suggestion of organomegaly. BONES: Severe degenerative changes and deformity of both shoulders. OTHER: No other significant finding. IMPRESSION: NO RADIOGRAPHIC EVIDENCE FOR ACUTE ABDOMINAL DISEASE. Bilateral nephrolithiasis. TECHNICAL DOCUMENTATION: JOB ID: [id number] [employer]- All Rights Reserved Reading location - IP/workstation name: [email or web address]
[2019-01-31] MEDS ORDERED: ONDANSETRON ODT 4 MG TAB (6 TAB/ER DISP) PO PRN (17:32)
--- NOTE | 2019-01-31 17:32 | ER Document Report ---
ED General - General Chief Complaint: Abdominal Pain Stated Complaint: ABDOMINAL PAIN Time Seen by Provider: 01/31/19 13:56 Primary Care Provider: SHANI HALL MD [Primary Care Provider] - 02/03/19 Mode of Arrival: Ambulatory Information source: Patient Notes: 53-year-old female presents with sudden onset of right lower quadrant pain that occurred this morning but has now resolved. Patient states that she had a bowel movement and then experienced an intense sharp right lower quadrant pain that lasted approximately 30 minutes and self resolved without medication. Patient does report a recent admission for abdominal pain and was found to have an ileus after evaluation with gastroenterology. Patient did have associated nausea without vomiting. Patient does have a history of urolithiasis. TRAVEL OUTSIDE OF THE [place] IN LAST 30 DAYS: No - HPI Onset: This morning Onset/Duration: Sudden, Gone Quality of pain: Stabbing Severity: None Pain Level: Denies Associated symptoms: Nausea, Other - Abdominal pain. denies: Diarrhea, Vomiting Exacerbated by: Denies Relieved by: Denies Similar symptoms previously: Yes Recently seen / treated by doctor: Yes - Related Data Allergies/Adverse Reactions: ciprofloxacin [From Cipro] Allergy (Verified 01/31/19 13:35) codeine Allergy (Verified 01/31/19 13:35) ketorolac [From Toradol] Allergy (Verified 01/31/19 13:35) morphine Allergy (Verified 01/31/19 13:35) nitrofurantoin [From Macrobid] Allergy (Verified 01/31/19 13:35) oxycodone [From Percocet] Allergy (Verified 01/31/19 13:35) Penicillins Allergy (Verified 01/31/19 13:35) sulfamethoxazole [From Bactrim] Allergy (Verified 01/31/19 13:35) trimethoprim [From Bactrim] Allergy (Verified 01/31/19 13:35) imepenum Allergy (Uncoded 01/31/19 13:35) Past Medical History - General Information source: Patient - Social History Smoking Status: Former Smoker Frequency of alcohol use: None Drug Abuse: None Lives with: Family Family History: Reviewed & Not Pertinent Patient has suicidal ideation: No Patient has homicidal ideation: No Neurological Medical History: Denies: Hx Seizures Renal/ Medical History: Denies: Hx Peritoneal Dialysis Musculoskeletal Medical History: Reports Hx Arthritis - RA Past Surgical History: Denies: Hx Hysterectomy - Immunizations Hx Diphtheria, Pertussis, Tetanus Vaccination: No - pt denied wanting the vaccine Hx Pneumococcal Vaccination: 07/01/18 Review of Systems - Review of Systems Notes: REVIEW OF SYSTEMS: CONSTITUTIONAL : Denies fever, chills, or sweats. Denies recent illness. Denies weight loss, recent hospitalizations. EENT: Denies visual changes, eye pain. Denies sore throat, oral lesions, difficulty swallowing. CARDIOVASCULAR: Denies chest pain. Denies palpitations. Denies lower extremity edema. RESPIRATORY: Denies cough. Denies shortness of breath, wheezing. GASTROINTESTINAL: Denies distention. Denies nausea, vomiting, or diarrhea. Denies blood in vomitus, stools, or per rectum. Denies black, tarry stools. Denies constipation. GENITOURINARY: Denies difficulty urinating, painful urination, frequency, blood in urine, or vaginal discharge. MUSCULOSKELETAL: Denies back or neck pain or stiffness. Denies joint pain or swelling. SKIN: Denies rash, lesions or sores. HEMATOLOGIC : Denies easy bruising or bleeding. LYMPHATIC: Denies swollen glands. NEUROLOGICAL: Denies confusion or altered mental status. Denies loss of consciousness. Denies dizziness or lightheadedness. Denies headache. Denies weakness or paralysis. Denies problems difficulty with ambulation, slurred speech. Denies sensory loss, numbness, or tingling. Denies seizures. PSYCHIATRIC: Denies anxiety or stress. Denies depression, suicidal ideation, or homicidal ideation. Denies visual or auditory hallucinations. Physical Exam - Vital signs Vitals: Temp Pulse Resp BP Pulse Ox 98.3 F 66 16 142/74 H 97 01/31/19 13:44 01/31/19 13:44 01/31/19 13:44 01/31/19 13:44 01/31/19 13:44 - Notes Notes: PHYSICAL EXAMINATION: GENERAL: Well-appearing, well-nourished and in no acute distress. HEAD: Atraumatic, normocephalic. EYES: Pupils equal round and reactive to light, extraocular movements intact, conjunctiva are normal. ENT: Nares patent, oropharynx clear without exudates. Moist mucous membranes. NECK: Normal range of motion, supple without lymphadenopathy LUNGS: Breath sounds clear to auscultation bilaterally and equal. No wheezes rales or rhonchi. HEART: Regular rate and rhythm without murmurs ABDOMEN: Soft, nontender, nondistended abdomen. No guarding, no rebound. No masses appreciated. Female : deferred Musculoskeletal: Normal range of motion, no pitting or edema. No cyanosis. NEUROLOGICAL: Cranial nerves grossly intact. Normal speech, normal gait. Normal sensory, motor exams PSYCH: Normal mood, normal affect. SKIN: Warm, Dry, normal turgor, no rashes or lesions noted. Course - Re-evaluation Re-evalutation: 01/31/19 17:32 Laboratory 01/31/19 01/31/19 01/31/19 14:27 14:27 15:00 WBC 10.9 H RBC 4.29 Hgb 14.3 Hct 41.2 MCV 96 MCH 33.4 MCHC 34.8 RDW 14.1 H Plt Count 287 Seg Neutrophils % 78.8 H Lymphocytes % 14.5 Monocytes % 4.3 Eosinophils % 1.9 Basophils % 0.5 Absolute Neutrophils 8.6 H Absolute Lymphocytes 1.6 Absolute Monocytes 0.5 Absolute Eosinophils 0.2 Absolute Basophils 0.1 Sodium Cancelled Potassium Cancelled Chloride Cancelled Carbon Dioxide Cancelled Anion Gap Cancelled BUN Cancelled Creatinine Cancelled Est GFR ( Amer) Cancelled Est GFR (Non-Af Amer) Cancelled Glucose Cancelled Calcium Cancelled Total Bilirubin Cancelled Direct Bilirubin Cancelled Neonat Total Bilirubin Cancelled Neonat Direct Bilirubin Cancelled Neonat Indirect Bili Cancelled AST Cancelled ALT Cancelled Alkaline Phosphatase Cancelled Total Protein Cancelled Albumin Cancelled Lipase Cancelled Urine Color YELLOW Urine Appearance CLEAR Urine pH 7.0 Ur Specific [place] 1.004 Urine Protein NEGATIVE Urine Glucose (UA) NEGATIVE Urine Ketones NEGATIVE Urine Blood SMALL H Urine Nitrite NEGATIVE Urine Bilirubin NEGATIVE Urine Urobilinogen NEGATIVE Ur Leukocyte Esterase NEGATIVE Urine WBC (Auto) 2 Urine RBC (Auto) 1 Urine Bacteria (Auto) TRACE Squamous Epi Cells Auto 1 Urine Mucus (Auto) RARE Urine Ascorbic Acid NEGATIVE 01/31/19 16:27 WBC RBC Hgb Hct MCV MCH MCHC RDW Plt Count Seg Neutrophils % Lymphocytes % Monocytes % Eosinophils % Basophils % Absolute Neutrophils Absolute Lymphocytes Absolute Monocytes Absolute Eosinophils Absolute Basophils Sodium 139.3 Potassium 4.4 Chloride 106 Carbon Dioxide 25 Anion Gap 8 BUN 17 Creatinine 0.63 Est GFR ( Amer) > 60 Est GFR (Non-Af Amer) > 60 Glucose 92 Calcium 10.5 H Total Bilirubin 0.6 Direct Bilirubin 0.3 Neonat Total Bilirubin Not Reportable Neonat Direct Bilirubin Not Reportable Neonat Indirect Bili Not Reportable AST 35 ALT 38 Alkaline Phosphatase 138 H Total Protein 7.8 Albumin 4.3 Lipase 335.4 H Urine Color Urine Appearance Urine pH Ur Specific [place] Urine Protein Urine Glucose (UA) Urine Ketones Urine Blood Urine Nitrite Urine Bilirubin Urine Urobilinogen Ur Leukocyte Esterase Urine WBC (Auto) Urine RBC (Auto) Urine Bacteria (Auto) Squamous Epi Cells Auto Urine Mucus (Auto) Urine Ascorbic Acid Acute Abdomen Series 01/31/19 16:49 IMPRESSION: NO RADIOGRAPHIC EVIDENCE FOR ACUTE ABDOMINAL DISEASE. Bilateral nephrolithiasis. Temp Pulse Resp BP Pulse Ox 98.3 F 66 16 142/74 H 97 01/31/19 13:44 01/31/19 13:44 01/31/19 13:44 01/31/19 13:44 01/31/19 13:44 01/31/19 21:39 53-year-old female presents with right lower quadrant abdominal pain that occurred prior to arrival and that has now resolved. Vitals reviewed upon arrival and within normal limits. Patient does not appear toxic or dehydrated. She is in no acute distress. Previous medical records and nursing notes rev iewed. Patient has a completely benign abdominal exam. I cannot reproduce her right lower quadrant abdominal pain. Patient does report numerous CAT scans of the abdomen and pelvis in the past and has elected to undergo an acute abdominal series which shows bilateral nephrolithiasis. It is possible that the patient passed a kidney stone earlier as she does have blood in her urine. Patient stat es that she has pain medication, Flomax at home and is requesting Zofran. Discussed return precautions including return of abdominal pain, fever, persistent vomiting. Patient was evaluated and treated as appropriate for the patient's presenting symptoms and complaint, with consideration of any critical or life threatening conditions that may be associated with their obtained history and exam as noted above. All results were discussed with patient and her family who is at the bedside. Patient provided the opportunity to ask questions, and express concerns. Patient was educated on treatments based on their presumed diagnosis as noted above. At this time we will discharge the patient with return precautions and follow-up recommendations. Verbal discharge instructions given a the bedside. Medication warnings reviewed. Patient is in agreement with this plan and has verbalized understanding of return precautions. After careful consideration I feel that that patient can be safely discharged from the emergency department, they were advised to followup with a primary care physician in 2-3 days. Dictation on this chart was performed using voice recognition software and may result in unintended grammatical, spelling, syntax or errors. - Vital Signs Vital signs: Temp Pulse Resp BP Pulse Ox 98.8 F 68 16 142/91 H 99 01/31/19 17:45 01/31/19 17:45 01/31/19 17:45 01/31/19 17:45 01/31/19 17:45 - Laboratory Result Diagrams: 01/31/19 14:27 01/31/19 16:27 Laboratory results interpreted by me: 01/31/19 01/31/19 01/31/19 14:27 15:00 16:27 WBC 10.9 H RDW 14.1 H Seg Neutrophils % 78.8 H Absolute Neutrophils 8.6 H Calcium 10.5 H Alkaline Phosphatase 138 H Lipase 335.4 H Urine Blood SMALL H - Diagnostic Test Radiology reviewed: Image reviewed, Reports reviewed Discharge - Discharge Clinical Impression: Abdominal pain Qualifiers: Abdominal location: right lower quadrant Qualified Code(s): R10.31 - Right lower quadrant pain Hypertension Qualifiers: Hypertension type: unspecified Qualified Code(s): I10 - Essential (primary) hypertension Condition: Good Disposition: HOME, SELF-CARE Instructions: Hematuria ([facility]), Kidney Stone ([facility]), Observation for Appendicitis ([facility]) Additional Instructions: Your symptoms should improve over the course of the next one week. If you continue to have pain for greater than one week or your pain is not controlled with the pain medications that you have been sent home with you need to return to the emergency department. Please also return if you develop fever, persistent vomiting, or any other symptoms that are concerning to you. Please take your Flomax to help pass the stone. You've been given Zofran to assist with nausea. Please follow-up with urology in the next 2-3 days. Prescriptions: Ondansetron [Zofran Odt 4 mg Tablet] 1 - 2 tab PO Q4H PRN #15 tab.rapdis PRN Reason: For Nausea/Vomiting Forms: Elevated Blood Pressure Referrals: SHANI HALL MD [Primary Care Provider] - 02/03/19
[2019-01-31 17:51] VITALS: BP 142/91
== END 2019-01-31 17:56 | disposition home or self-care (01) ==
LOC: ER 13:32
DX: N20.0 Calculus of kidney (principal); I10 Essential (primary) hypertension; R10.31 Right lower quadrant pain; R11.0 Nausea; R31.9 Hematuria, unspecified; Z87.891 Personal history of nicotine dependence; Z88.1 Allergy status to other antibiotic agents; Z88.5 Allergy status to narcotic agent; Z88.8 Allergy status to other drugs, medicaments and biological substances; Z88.0 Allergy status to penicillin
CPT/HCPCS: 99284; 36415; 83690; 85025; 80053; 81001; 74022; A9270

== ENCOUNTER 2019-04-02 16:17 | Emergency (ER) | payer MEDICARE, MEDICAID ==
--- NOTE | 2019-04-02 17:07 | ER Document Report ---
HPI - HPI Patient complains to provider of: head injury fall Time Seen by Provider: 04/02/19 16:42 Onset: Just prior to arrival Onset/Duration: Sudden Quality of pain: Achy Severity: Severe Pain Level: 5 Context: Patient presents to the emergency department post fall. Patient reports she was stepping out of the dentist office when she tripped and fell landing on the right side of her face. Patient has hematomas to her right forehead with some tenderness to her right upper orbit. Patient denies change in LOC. Patient denies vomiting. She has a headache. Is answering all questions appropriately. Patient is not taking any type of anticoagulants. Associated Symptoms: None Exacerbated by: Denies Relieved by: Denies Similar symptoms previously: No Recently seen / treated by doctor: No - REPRODUCTIVE Reproductive: DENIES: : - DERM Skin Color: Normal Past Medical History - General Information source: Patient - Social History Smoking Status: Unknown if Ever Smoked Cigarette use (# per day): No Chew tobacco use (# tins/day): No Frequency of alcohol use: None Drug Abuse: None Lives with: Family Family History: Reviewed & Not Pertinent Patient has suicidal ideation: No Patient has homicidal ideation: No Neurological Medical History: Denies: Hx Seizures Renal/ Medical History: Reports: Hx Kidney Stones. Denies: Hx Peritoneal Dialysis Musculoskeletal Medical History: Reports Hx Arthritis - RA Surgical Hx: Negative Past Surgical History: Denies: Hx Hysterectomy - Immunizations Hx Diphtheria, Pertussis, Tetanus Vaccination: No - pt denied wanting the vaccine Hx Pneumococcal Vaccination: 07/01/18 Vertical Provider Document - CONSTITUTIONAL Agree With Documented VS: Yes Exam Limitations: No Limitations General Appearance: WD/WN, No Apparent Distress - INFECTION CONTROL TRAVEL OUTSIDE OF THE [place] IN LAST 30 DAYS: No - HEENT HEENT: PERRLA. negative: Conjuctival Injection Notes: right side forehead with hematoma, no open wounds, + tenderness to right upper orbit - NECK Neck: Normal Inspection, Supple. negative: Lymphadenopathy-Left, Lymphadenopathy-Right - RESPIRATORY Respiratory: Breath Sounds Normal, No Respiratory Distress - CARDIOVASCULAR Cardiovascular: Regular Rate - MUSCULOSKELETAL/EXTREMETIES Musculoskeletal/Extremeties: MAEW, FROM, Tender - Right hand with some ecchymosis dorsally to the fourth and fifth MCP - NEURO Level of Consciousness: Awake, Alert, Appropriate Motor/Sensory: No Motor Deficit - DERM Integumentary: Warm, Dry Course - Re-evaluation Re-evalutation: 04/02/19 18:08 Patient was instructed on negative CT negative x-ray of hands. She reports she will take Tylenol for the pain but she also has Ultram at home if she has worsening pain declines other medications. Was instructed to follow-up with her primary care provider. She lives with family so they will keep an eye on her. Dictation of this chart was performed using voice recognition software; therefore, there may be some unintended grammatical errors. - Vital Signs Vital signs: Temp Pulse Resp BP Pulse Ox 98.0 F 74 14 158/85 H 95 04/02/19 16:23 04/02/19 16:23 04/02/19 16:23 04/02/19 16:23 04/02/19 16:23 - Diagnostic Test Radiology reviewed: Image reviewed, Reports reviewed - EXAM DESCRIPTION: HAND LEFT 3 VIEWS COMPLETED DATE/TIME: 04/02/2019 5:21 pm REASON FOR STUDY: FALL HAND PAIN COMPARISON: None. EXAM PARAMETERS: NUMBER OF VIEWS: Three views. TECHNIQUE: AP, lateral and oblique radiographic images acquired of the left hand. LIMITATIONS: None. FINDINGS: MINERALIZATION: Osteopenia. BONES: No acute fracture or dislocation. 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 Deformity of the radial -ulnar - carpal articulations. No acute erosive changes. . JOINTS: No effusion. SOFT TISSUES: No significant soft tissue swelling. No radiopaque foreign body. OTHER: No other significant finding. IMPRESSION: NO FRACTURE. TECHNICAL DOCUMENTATION: JOB ID: [id number] EXAM DESCRIPTION: HAND RIGHT 3 VIEWS COMPLETED DATE/TIME: 04/02/2019 5:07 pm REASON FOR STUDY: fall, LIRA, right orbit pain, hand pain COMPARISON: None. EXAM PARAMETERS: NUMBER OF VIEWS: Three views. TECHNIQUE: AP, lateral and oblique radiographic images acquired of the right hand. LIMITATIONS: None. FINDINGS: MINERALIZATION: Osteopenia. BONES: No acute fracture or dislocation. 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 Deformity of the radial -ulnar - carpal articulations. No acute erosive changes. JOINTS: No effusion. SOFT TISSUES: No significant soft tissue swelling. No radiopaque foreign body. OTHER: No other significant finding. IMPRESSION: NO FRACTURE. EXAM DESCRIPTION: CT HEAD WITHOUT COMPLETED DATE/TIME: 04/02/2019 5:22 pm REASON FOR STUDY: fall, LIRA, right orbit pain, hand pain COMPARISON: None. TECHNIQUE: Axial images acquired through the brain without intravenous contrast. Images reviewed with bone, brain and subdural windows. Additional sagittal and coronal reconstructions were generated. Images stored on PACS. All CT scanners at this facility use dose modulation, iterative reconstruction, and/or weight based dosing when appropriate to reduce radiation dose to as low as reasonably achievable (ALARA). [facility]: Dose Right [facility]: CareDose [facility]: Dose Right [facility]: Teradose 4D [facility]: [employer] RADIATION DOSE: CT Rad equipment meets quality standard of care and radiation dose reduction techniques were employed. CTDIvol: 53.2 mGy. DLP: 991 mGy-cm. mGy. LIMITATIONS: None. FINDINGS: VENTRICLES: Normal size and contour. CEREBRUM: No masses. No hemorrhage. No midline shift. No evidence for acute infarction. Normal thurman/white matter differentiation. No areas of low density in the white matter. CEREBELLUM: No masses. No hemorrhage. No alteration of density. No evidence for acute infarction. EXTRAAXIAL SPACES: No fluid collections. No masses. ORBITS AND GLOBE: No intra- or extraconal masses. Normal contour of globe without masses. CALVARIUM: No fracture. PARANASAL SINUSES: No fluid or mucosal thickening. SOFT TISSUES: Right frontal scalp hematoma. OTHER: No other significant finding. IMPRESSION: Right frontal scalp hematoma with no acute intracranial imaging findings. EVIDENCE OF ACUTE STROKE: NO. COMMENT: Quality ID # [id number]: Final reports with documentation of one or more dose reduction techniques (e.g., Automated exposure control, adjustment of the mA and/or kV according to patient size, use of iterative reconstruction technique) Discharge - Discharge Clinical Impression: Fall head injury, Hematoma Hand injuries Qualifiers: Encounter type: initial encounter Laterality: unspecified laterality Qualified Code(s): S69.90XA - Unspecified injury of unspecified wrist, hand and finger(s), initial encounter Condition: Stable Disposition: HOME, SELF-CARE Instructions: Use of [facility] Ibuprofen ([facility]), Ice & Elevation ([facility]), Scalp Hematoma ([facility]) Additional Instructions: *You have been evaluated post fall for head injury scalp hematoma hand injuries *Your CT was negative for an acute fracture Rest/Ice/Elevate hands *Follow up with primary care provider within 1 week for recheck *Take Tylenol as indicated for pain *Return to ED for worsening condition, changes, needs Monitor your blood pressure. Your blood pressure was elevated today. This may be because you were anxious, in pain or because you need medication. It is important to follow up with your primary care provider for full evaluation. Forms: Elevated Blood Pressure, Return to Work Referrals: SHANI HALL MD [Primary Care Provider] - Follow up in 1 week
--- NOTE | 2019-04-02 17:29 | RADIOLOGY REPORT (SQ) ---
EXAM DESCRIPTION: HAND RIGHT 3 VIEWS COMPLETED DATE/TIME: 04/02/2019 5:07 pm REASON FOR STUDY: fall, LIRA, right orbit pain, hand pain COMPARISON: None. EXAM PARAMETERS: NUMBER OF VIEWS: Three views. TECHNIQUE: AP, lateral and oblique radiographic images acquired of the right hand. LIMITATIONS: None. FINDINGS: MINERALIZATION: Osteopenia. BONES: No acute fracture or dislocation. Complete ankylosis of the intercarpal and carpal- metacarpa l joints. Deformity of the radial -ulnar - carpal articulations. No acute erosive changes. JOINTS: No effusion. SOFT TISSUES: No significant soft tissue swelling. No radiopaque foreign body. OTHER: No other significant finding. IMPRESSION: NO FRACTURE. TECHNICAL DOCUMENTATION: JOB ID: [id number] [place]-72 2010 [employer]- All Rights Reserved Reading location - IP/workstation name: [email or web address]
--- NOTE | 2019-04-02 17:31 | RADIOLOGY REPORT (SQ) ---
EXAM DESCRIPTION: CT HEAD WITHOUT COMPLETED DATE/TIME: 04/02/2019 5:22 pm REASON FOR STUDY: fall, LIRA, right orbit pain, hand pain COMPARISON: None. TECHNIQUE: Axial images acquired through the brain without intravenous contrast. Images reviewed wi th bone, brain and subdural windows. Additional sagittal and coronal reconstructions were generated. Images stored on PACS. All CT scanners at this facility use dose modulation, iterative reconstruction, and/or weight based d osing when appropriate to reduce radiation dose to as low as reasonably achievable (ALARA). [facility]: Dose Right [facility]: CareDose [facility]: Dose Right [facility]: Teradose 4D [facility]: [employer] RADIATION DOSE: CT Rad equipment meets quality standard of care and radiation dose reduction techniq ues were employed. CTDIvol: 53.2 mGy. DLP: 991 mGy-cm. mGy. LIMITATIONS: None. FINDINGS: VENTRICLES: Normal size and contour. CEREBRUM: No masses. No hemorrhage. No midline shift. No evidence for acute infarction. Normal gra y/white matter differentiation. No areas of low density in the white matter. CEREBELLUM: No masses. No hemorrhage. No alteration of density. No evidence for acute infarction. EXTRAAXIAL SPACES: No fluid collections. No masses. ORBITS AND GLOBE: No intra- or extraconal masses. Normal contour of globe without masses. CALVARIUM: No fracture. PARANASAL SINUSES: No fluid or mucosal thickening. SOFT TISSUES: Right frontal scalp hematoma. OTHER: No other significant finding. IMPRESSION: Right frontal scalp hematoma with no acute intracranial imaging findings. EVIDENCE OF ACUTE STROKE: NO. COMMENT: Quality ID # [id number]: Final reports with documentation of one or more dose reduction techniques (e.g., Automated exposure control, adjustment of the mA and/or kV according to patient size, use of iterative reconstruction technique) TECHNICAL DOCUMENTATION: JOB ID: [id number] [employer]- All Rights Reserved Reading location - IP/workstation name: [email or web address]
--- NOTE | 2019-04-02 17:32 | RADIOLOGY REPORT (SQ) ---
EXAM DESCRIPTION: HAND LEFT 3 VIEWS COMPLETED DATE/TIME: 04/02/2019 5:21 pm REASON FOR STUDY: FALL HAND PAIN COMPARISON: None. EXAM PARAMETERS: NUMBER OF VIEWS: Three views. TECHNIQUE: AP, lateral and oblique radiographic images acquired of the left hand. LIMITATIONS: None. FINDINGS: MINERALIZATION: Osteopenia. BONES: No acute fracture or dislocation. Complete ankylosis of the intercarpal and carpal- metacarpa l joints. Deformity of the radial -ulnar - carpal articulations. No acute erosive changes. . JOINTS: No effusion. SOFT TISSUES: No significant soft tissue swelling. No radiopaque foreign body. OTHER: No other significant finding. IMPRESSION: NO FRACTURE. TECHNICAL DOCUMENTATION: JOB ID: [id number] [place]-72 2010 [employer]- All Rights Reserved Reading location - IP/workstation name: [email or web address]
[2019-04-02 18:13] VITALS: BP 179/90
== END 2019-04-02 18:15 | disposition home or self-care (01) ==
LOC: ER 16:17
DX: S09.90XA Unspecified injury of head, initial encounter (principal); S69.90XA Unspecified injury of unspecified wrist, hand and finger(s), initial encounter; W01.0XXA Fall on same level from slipping, tripping and stumbling without subsequent striking against object, initial encounter; Z87.442 Personal history of urinary calculi
CPT/HCPCS: 70450; 99284

== ENCOUNTER → 2019-10-23 | Outpatient (CLI) | payer MEDICARE, MEDICAID ==
--- NOTE | 2019-10-23 14:40 | RADIOLOGY REPORT (SQ) ---
EXAM DESCRIPTION: CT ABD/PELVIS NO ORAL OR IV COMPLETED DATE/TIME: 10/23/2019 1:34 pm REASON FOR STUDY: HYDRONEPHROSIS (N13.30), HYPOTHYROIDISM (E03.9) N13.30 UNSPECIFIED HYDRONEPHROSIS Left upper quadrant pain. COMPARISON: 01/19/2019 TECHNIQUE: CT scan of the abdomen and pelvis performed without intravenous or oral contrast. Images reviewed with lung, soft tissue, and bone windows. Reconstructed coronal and sagittal MPR images revi ewed. All images stored on PACS. All CT scanners at this facility use dose modulation, iterative reconstruction, and/or weight based d osing when appropriate to reduce radiation dose to as low as reasonably achievable (ALARA). [facility]: Dose Right [facility]: CareDose [facility]: Dose Right [facility]: Teradose 4D [facility]: Smart MyDoc RADIATION DOSE: CT Rad equipment meets quality standard of care and radiation dose reduction techniq ues were employed. CTDIvol: 11.8 mGy. DLP: 592 mGy-cm.mGy. LIMITATIONS: None. FINDINGS: LOWER CHEST: No significant findings. No nodules or infiltrates. NON-CONTRASTED LIVER, SPLEEN, ADRENALS: Evaluation limited by lack of IV contrast. No identified sign ificant masses. PANCREAS: No masses. No peripancreatic inflammatory changes. GALLBLADDER: Gallstones. No inflammatory changes to suggest cholecystitis. RIGHT KIDNEY AND URETER: No solid masses. Multiple nonobstructive calculi. No hydronephrosis or hyd roureter. LEFT KIDNEY AND URETER: No solid masses. Multiple nonobstructive calculi. No hydronephrosis or hydr oureter. AORTA AND RETROPERITONEUM: No aneurysm. No retroperitoneal masses or adenopathy. BOWEL AND PERITONEAL CAVITY: No obvious masses or inflammatory changes. No free fluid. APPENDIX: Not clearly visualized. May be surgically absent. PELVIS, BLADDER, AND ABDOMINAL WALL:No abnormal masses. No free fluid. Dense metallic streak artifac t significantly limits evaluation of the low pelvis, including the ureterovesicular junctions. BONES: Status post bilateral hip total arthroplasty. OTHER: No other significant finding. IMPRESSION: 1. No noncontrast CT abnormality of the left upper quadrant to explain pain. 2. Numerous bilateral nonobstructive calculi. There is no significant hydronephrosis or hydroureter . Dense metallic streak artifact significantly limits evaluation of the low pelvis, including the ure terovesicular junctions. Within this limitation, there is no obvious distal ureteral or bladder calc ulus. 3. Cholelithiasis. TECHNICAL DOCUMENTATION: JOB ID: [id number] Quality ID # [id number]: Final reports with documentation of one or more dose reduction techniques (e.g., Au tomated exposure control, adjustment of the mA and/or kV according to patient size, use of iterative reconstruction technique) 2010 [employer]- All Rights Reserved Reading location - IP/workstation name: [email or web address]
== END ==
LOC: RAD 12:33
PROVIDERS: ATTEND Internal Medicine
DX: N13.2 Hydronephrosis with renal and ureteral calculous obstruction (principal); K80.20 Calculus of gallbladder without cholecystitis without obstruction; E03.9 Hypothyroidism, unspecified
CPT/HCPCS: 74176

== ENCOUNTER 2020-04-13 20:35 | Emergency (ER) | payer MEDICARE, MEDICAID ==
[2020-04-13] MEDS ORDERED: DIPH/PERTUSS(ACELL)/TETANUS VAC/PF 0.5 ML SYR (>=10YO) IM ONE (22:29)
--- NOTE | 2020-04-13 22:31 | ER Document Report ---
ED Medical Screen (RME) - General Chief Complaint: Leg Pain Stated Complaint: LEG LACERATION Time Seen by Provider: 04/13/20 22:25 Primary Care Provider: ANUJ WADDELL DO [Primary Care Provider] - Follow up as needed Mode of Arrival: Medic Information source: Patient Notes: HPI; 54-year-old female presents to the emergency room with a laceration to her left lateral lower leg. States her daughter's dog jumped on her and was cut with the dog's nail to her left lower leg. Patient states it went through her pant legs. Bleeding is controlled. Unknown last tetanus shot. States dog is up-to-date with his vaccines. PE: Alert and oriented x3. 4 x 3 cm laceration is noted to the left lateral lower leg. Bleeding is controlled. Positive left pedal pulse. I have greeted and performed a rapid initial assessment of this patient. A comprehensive ED assessment and evaluation of the patient, analysis of test results and completion of the medical decision making process will be conducted by additional ED providers. I have specifically instructed the patient or family members with the patient to immediately return to any nursing staff should anything change in the patient's condition or with their chief complaint. TRAVEL OUTSIDE OF THE [place] IN LAST 30 DAYS: No - Related Data Allergies/Adverse Reactions: ciprofloxacin [From Cipro] Allergy (Verified 04/02/19 16:19) codeine Allergy (Verified 04/02/19 16:19) ketorolac [From Toradol] Allergy (Verified 04/02/19 16:19) morphine Allergy (Verified 04/02/19 16:19) nitrofurantoin [From Macrobid] Allergy (Verified 04/02/19 16:19) oxycodone [From Percocet] Allergy (Verified 04/02/19 16:19) Penicillins Allergy (Verified 04/02/19 16:19) sulfamethoxazole [From Bactrim] Allergy (Verified 04/02/19 16:19) trimethoprim [From Bactrim] Allergy (Verified 04/02/19 16:19) imepenum Allergy (Uncoded 04/02/19 16:19) Past Medical History Neurological Medical History: Denies: Hx Seizures Renal/ Medical History: Reports: Hx Kidney Stones. Denies: Hx Peritoneal Dialysis Musculoskeltal Medical History: Reports Hx Arthritis - RA Past Surgical History: Denies: Hx Hysterectomy - Immunizations Hx Diphtheria, Pertussis, Tetanus Vaccination: No - pt denied wanting the vaccine Physical Exam - Vital signs Vitals: Temp Pulse Resp BP Pulse Ox 99.3 F 74 18 159/78 H 98 04/13/20 21:18 04/13/20 21:18 04/13/20 21:18 04/13/20 21:18 04/13/20 21:18 Course - Vital Signs Vital signs: Temp Pulse Resp BP Pulse Ox 99.3 F 74 18 159/78 H 98 04/13/20 21:18 04/13/20 21:18 04/13/20 21:18 04/13/20 21:18 04/13/20 21:18 Doctor's Discharge - Discharge Referrals: ANUJ WADDELL DO [Primary Care Provider] - Follow up as needed
[2020-04-14] MEDS ORDERED: LIDOCAINE 1%/EPINEPHRINE INJ 20 ML VIAL INJ ONE (04:02)
[2020-04-14 04:56] VITALS: BP 120/70
[2020-04-14] MEDS ORDERED: LORAZEPAM 0.5 MG TABLET PO ONE (05:43)
--- NOTE | 2020-04-14 06:53 | ER Document Report ---
ED Extremity Problem, Lower - General Chief Complaint: Laceration Stated Complaint: LEG LACERATION Time Seen by Provider: 04/13/20 22:25 Primary Care Provider: ANUJ WADDELL DO [NO LOCAL MD] - Follow up in 1 week Mode of Arrival: Medic Notes: She has a 54-year-old female who presents emergency department with a chief complaint of a laceration to her left lower leg. She states that she was scratched by her sister's dog. She is wearing her pants in the dog had sharp nails and ended up scratching her leg. TRAVEL OUTSIDE OF THE [place] IN LAST 30 DAYS: No - Related Data Allergies/Adverse Reactions: ciprofloxacin [From Cipro] Allergy (Verified 04/02/19 16:19) codeine Allergy (Verified 04/02/19 16:19) ketorolac [From Toradol] Allergy (Verified 04/02/19 16:19) morphine Allergy (Verified 04/02/19 16:19) nitrofurantoin [From Macrobid] Allergy (Verified 04/02/19 16:19) oxycodone [From Percocet] Allergy (Verified 04/02/19 16:19) Penicillins Allergy (Verified 04/02/19 16:19) sulfamethoxazole [From Bactrim] Allergy (Verified 04/02/19 16:19) trimethoprim [From Bactrim] Allergy (Verified 04/02/19 16:19) imepenum Allergy (Uncoded 04/02/19 16:19) Home Medications: folic acid. Vit D. Lorazapam. Zertec. Sulindac. methatraxae. SPironlactone. Cipro. Toradol. Bactorium. imepemom. microbid. percocet Past Medical History - General Information source: Patient - Social History Smoking Status: Never Smoker Chew tobacco use (# tins/day): No Frequency of alcohol use: None Drug Abuse: None Family History: Reviewed & Not Pertinent Neurological Medical History: Denies: Hx Seizures Renal/ Medical History: Reports: Hx Kidney Stones. Denies: Hx Peritoneal Dialysis Musculoskeletal Medical History: Reports Hx Arthritis - RA Past Surgical History: Denies: Hx Hysterectomy - Immunizations Hx Diphtheria, Pertussis, Tetanus Vaccination: No - pt denied wanting the vaccine Hx Pneumococcal Vaccination: 07/01/18 Review of Systems - Review of Systems Notes: REVIEW OF SYSTEMS: CONSTITUTIONAL : Denies recent illness. Denies recent unintentional weight loss. Denies fever, chills, or sweats. EENT: Denies eye, ear, throat, or mouth pain, discharge, or symptoms. Denies nasal or sinus congestion. CARDIOVASCULAR: Denies chest pain. RESPIRATORY: Denies shortness of breath, cough, congestion, difficulty breathing, or wheezing. GASTROINTESTINAL: Denies nausea, vomiting, and diarrhea. Denies abdominal pain. Denies constipation. GENITOURINARY: Denies difficulty urinating, burning, blood in urine, urgency or frequency. MUSCULOSKELETAL: Denies neck and back pain. Denies joint pain or swelling. SKIN: See HPI. HEMATOLOGIC : Denies easy bruising or bleeding. LYMPHATIC: Denies swollen, painful, enlarged glands. NEUROLOGICAL: Denies no numbness or tingling denies weakness. Denies headache. Denies altered mental status. Denies alteration in speech. PSYCHIATRIC: Denies stress, anxiety, alteration in sleep patterns, or depression. All other systems reviewed and negative. Physical Exam - Vital signs Vitals: Temp Pulse Resp BP Pulse Ox 99.3 F 74 18 159/78 H 98 04/13/20 21:18 04/13/20 21:18 04/13/20 21:18 04/13/20 21:18 04/13/20 21:18 - Notes Notes: PHYSICAL EXAMINATION: GENERAL: Appears well, healthy, well-nourished, no acute distress. HEAD: Normocephalic, atraumatic. EYES: PERRL, conjunctiva normal, all extraocular movements intact, sclera nonicteric ENT: Moist mucous membranes. NECK: Supple, no noticeable swelling, redness, rash. Normal range of motion. LUNGS: Equal breath sounds bilaterally and clear to auscultation. No wheezes rales or rhonchi. CARDIOVASCULAR: S1-S2, regular rate, regular rhythm. Radial pulses 2+, normal. ABDOMEN: Normoactive bowel sounds. Soft, nontender, no guarding, no rebound tenderness, and no masses palpated. EXTREMITIES: Normal strength and range of motion, no pitting or edema. No cyanosis. NEUROLOGICAL: Moves all extremities upon command. Strength 5/5 in all extremities. PSYCH: Normal mood, normal affect. SKIN: Warm, dry. L-shaped laceration noted to left anterior holt. Course - Vital Signs Vital signs: Temp Pulse Resp BP Pulse Ox 98.8 F 96 16 120/70 98 04/14/20 07:06 04/14/20 07:06 04/14/20 07:06 04/14/20 07:06 04/14/20 07:06 Procedures - Laceration/Wound Repair Left Anterior Leg Wound length (cm): 4 Wound's Depth, Shape: Flap - L-shaped Laceration pre-procedure: Sterile PPE donned, Sterile drapes applied, Shur-Clens applied Anesthetic type: 1% Lidocaine w/epi Volume Anesthetic (mLs): 10 Wound explored: Clean, No foreign body removed Irrigated w/ Saline (mLs): 200 Wound Debrided: Minimal Wound Repaired With: Sutures Suture Size/Type: 4:0, Nylon Number of Sutures: 9 Post-procedure wound care: Sterile dressing applied Post-procedure NV exam normal: Yes Complications: No Adult Front & Back picture: 1 - L-shaped Laceration Discharge - Discharge Clinical Impression: Leg laceration Qualifiers: Encounter type: initial encounter Laterality: left Qualified Code(s): S81.812A - Laceration without foreign body, left lower leg, initial encounter Condition: Stable Disposition: HOME, SELF-CARE Instructions: Antibiotic Ointment Protection ([facility]), Laceration Care ([facility]), Prophylactic Antibiotic ([facility]), Soap Cleansing ([facility]), Tetanus Immunization Given ([facility]) Additional Instructions: Please return to your primary doctor, the ED, or an urgent care in 7 days for suture removal. Return immediately if you develop spreading redness around the wound, pus from the wound, worsening pain, or a fever of >100.4. Keep the area clean and dry. Wash gently with soap and water twice daily and cover with antibiotic ointment. Take the antibiotic to prevent infection. Prescriptions: Cephalexin Monohydrate [Keflex 500 mg Capsule] 500 mg PO Q6H 5 Days #20 capsule Referrals: ANUJ WADDELL DO [NO LOCAL MD] - Follow up in 1 week
== END 2020-04-14 07:06 | disposition home or self-care (01) ==
LOC: ER 20:35
DX: S81.812A Laceration without foreign body, left lower leg, initial encounter (principal); W54.8XXA Other contact with dog, initial encounter; Z23 Encounter for immunization; Z88.3 Allergy status to other anti-infective agents; Z88.6 Allergy status to analgesic agent; Z88.0 Allergy status to penicillin
CPT/HCPCS: 99283; 90471; 90715; 12002; J3490; A9270